=== PATIENT | male | born 1935 | race Caucasian/White ===

== ENCOUNTER 2024-08-20 18:49 | Inpatient (IN) | payer MEDICARE ==
[2024-08-20 19:44] LABS: Basophils % (A) 0 %; Eosinophils % (A) 0 %; HCT 34.6 % (39.0-53.0); HGB 10.8 gm/dL (13.0-17.5); Hypochromasia Marked; Lymphocytes # (A) 0.3 k/uL (1.0-4.8); Lymphocytes % (A) 3 %; MCH 31.5 pg (25.0-35.0); MCHC 31.3 g/dL (31.0-37.0); MCV 100.7 fL (80.0-100.0); Macrocytosis Slight; Monocytes # (A) 0.4 k/uL (0-1.0); Monocytes % (A) 4 %; Neutrophils # (A) 7.9 k/uL (1.3-7.7); Neutrophils % (A) 92 %; Platelet Count 156 k/uL (150-450); RBC 3.44 m/uL (4.30-5.90); RDW 14.7 % (11.5-15.5); WBC 8.6 k/uL (3.8-10.6)
[2024-08-20 19:59] LABS: ALT 16 U/L (4-49); AST 17 U/L (17-59); African American GFR (CKD) 31 (>60 ml/min/1.73 sqM); Albumin 3.1 g/dL (3.5-5.0); Alkaline Phosphatase 118 U/L (38-126); Anion Gap 10 mmol/L; Blood Urea Nitrogen 35 mg/dL (9-20); Calcium 8.6 mg/dL (8.4-10.2); Carbon Dioxide 16 mmol/L (22-30); Chloride 114 mmol/L (98-107); Glucose 130 mg/dL (74-99); Magnesium 2.3 mg/dL (1.6-2.3); Non-African American GFR(CKD) 27 (>60 ml/min/1.73 sqM); Potassium 5.2 mmol/L (3.5-5.1); Sodium 140 mmol/L (137-145); Total Bilirubin 0.9 mg/dL (0.2-1.3); Total Protein 5.6 g/dL (6.3-8.2)
[2024-08-20 20:04] LABS: INR 1.1 (<1.2); Partial Thromboplastin Time 23.7 sec (22.0-30.0); Prothrombin Time 12.3 sec (10.0-12.5)
[2024-08-20 20:08] LABS: NT-Pro-B-Type Natriuretic Pept 7300 pg/mL
--- NOTE | 2024-08-20 20:32 | XR ---
EXAMINATION TYPE: XR chest 2V DATE OF EXAM: 08/20/2024 8:27 PM COMPARISON: None. CLINICAL INDICATION: Male, 88 years old with history of Weakness: Shortness of breath TECHNIQUE: XR chest 2V views of the chest are obtained. FINDINGS: Scattered senescent parenchymal changes noted. Hyperinflation compatible with COPD. Patchy and nodular infiltrate left perihilar region could reflect pneumonia in the appropriate clinic al setting. Underlying mass is not excluded and follow up following appropriate therapeutic intervent ion is recommended. There appear to be small effusions. Heart size is stable. Mediastinal structures are stable and grossly unremarkable. No evidence for hilar prominence. Degenerative changes dorsal spine. IMPRESSION: 1. Patchy and nodular infiltrate left perihilar region could reflect pneumonia in the appropriate cli nical setting. Underlying mass is not excluded and short-term follow up following appropriate therape utic intervention is recommended. [facility], , 08/20/2024 8:29 PM
[2024-08-20] MEDS: FUROSEMIDE 10 MG/ML 4 ML VIAL IV STA (20:47)
[2024-08-20] MEDS ORDERED: NALOXONE 0.4 MG/ML 1 ML VIAL IV PRN (21:39)
--- NOTE | 2024-08-20 21:53 | CT ---
6 EXAMINATION TYPE: CT brain wo con DATE OF EXAM: 08/20/2024 COMPARISON: None CLINICAL INDICATION: Male, 88 years old with history of weakness; [facility], Patient comes in for weakness and dizziness. Unable to get out of wheelchair. Lives at home byself. Daught came to see him and coul d not get proper blood pressure reading. TECHNIQUE: CT scan of the head is performed without contrast. CT DLP: 1121.[address] CTDI: mGy Automated exposure control for dose reduction was used. FINDINGS: There is no acute intracranial hemorrhage or midline shift identified. There is diffuse v entricular and sulcal prominence consistent with diffuse age-related cerebral atrophy. There is low- attenuation in the periventricular white matter consistent with chronic small vessel ischemic change. The globes are intact and the visualized sinuses are clear. IMPRESSION: No acute intracranial hemorrhage or midline shift. There is diffuse age-related cerebra l atrophy and chronic small vessel ischemic change noted. [facility], , 08/20/2024 9:51 PM
[2024-08-20] MEDS: HEPARIN SODIUM 1,000 UN/ML (10ML VL) IV ONE (22:14)
[2024-08-20] MEDS: HEPARIN SOD,PORK IN 0.45% NACL 25,000 UNIT in 0.45% NACL 1 250ML.BAG IV SCH (22:15)
--- NOTE | 2024-08-20 22:29 | ED ---
General Adult HPI - General Chief complaint: Weakness Stated complaint: Weakness Time Seen by Provider: 08/20/24 19:29 Source: patient Mode of arrival: wheelchair Limitations: no limitations - History of Present Illness Initial comments: 88-year-old male presenting with chief complaint of weakness. Patient lives alone. He reports that since this afternoon he has been unable to get out of his wheelchair. Family came to visit him this evening and found him stuck in his wheelchair. He also tried to take his blood pressure but could not get a proper reading. He reports that he does take a "water pill", however he has missed some doses and he is having some severe lower extremity swelling. Patient denies shortness of breath but does have labored breathing. He denies chest pain. Denies abdominal pain and vomiting. - Related Data Home Medications Medication Instructions Recorded Confirmed Atorvastatin Calcium [Lipitor] 40 mg PO DAILY 08/20/24 08/20/24 Furosemide [Lasix] 20 mg PO DAILY 08/20/24 08/20/24 Glimepiride [Amaryl] 1 mg PO DAILY 08/20/24 08/20/24 Metoprolol Tartrate [Lopressor] 12.5 mg PO BID 08/20/24 08/20/24 Potassium Chloride ER [K-Dur 10] 10 meq PO DAILY 08/20/24 08/20/24 Tamsulosin [Flomax] 0.4 mg PO DAILY 08/20/24 08/20/24 amLODIPine BESYLATE/BENAZEPRIL 1 cap PO DAILY 08/20/24 08/20/24 [amLODIPine BESYLATE/BENAZEPRIL 10-20 mg] lisinopriL [Zestril] 10 mg PO DAILY 08/20/24 08/20/24 Allergies Allergy/AdvReac Type Severity Reaction Status Date / Time No Known Allergies Allergy Verified 08/20/24 19:44 Review of Systems ROS Statement: Those systems with pertinent positive or pertinent negative responses have been documented in the HPI. ROS Other: All systems not noted in ROS Statement are negative. Past Medical History Past Medical History: Diabetes Mellitus, Hypertension History of Any Multi-Drug Resistant Organisms: None Reported Past Surgical History: No Surgical Hx Reported Past Psychological History: No Psychological Hx Reported Smoking Status: Never smoker Past Alcohol Use History: Rare Past Drug Use History: None Reported - Past Family History Father Family Medical History: Diabetes Mellitus Mother Family Medical History: Cancer General Exam General appearance: alert, in no apparent distress Head exam: Present: atraumatic, normocephalic, normal inspection Eye exam: Present: normal appearance, EOMI Neck exam: Present: normal inspection. Absent: meningismus Respiratory exam: Present: normal lung sounds bilaterally. Absent: respiratory distress, wheezes, rales, rhonchi, stridor Cardiovascular Exam: Present: regular rate, normal rhythm, normal heart sounds. Absent: systolic murmur, diastolic murmur, rubs, gallop, clicks Extremities exam: Present: pedal edema Neurological exam: Present: alert, oriented X3 Psychiatric exam: Present: normal affect, normal mood Skin exam: Present: warm, dry Course Vital Signs 08/20/24 08/20/24 08/20/24 19:04 20:44 22:16 Temperature 98.2 F Pulse Rate 42 L 40 L 40 L Respiratory 18 18 18 Rate Blood Pressure 159/66 156/70 120/91 O2 Sat by Pulse 93 L 92 L 96 Oximetry 08/20/24 08/21/24 08/21/24 23:00 00:00 01:00 Temperature Pulse Rate 40 L 40 L 40 L Respiratory 18 18 18 Rate Blood Pressure 145/62 164/62 175/73 O2 Sat by Pulse 94 L 95 93 L Oximetry 08/21/24 08/21/24 08/21/24 02:00 03:45 07:00 Temperature Pulse Rate 40 L 35 L 32 L Respiratory 18 20 22 Rate Blood Pressure 156/69 173/85 165/66 O2 Sat by Pulse 93 L 96 92 L Oximetry 08/21/24 08/21/24 08/21/24 09:16 10:00 12:00 Temperature 97.8 F Pulse Rate 53 L 34 L 34 L Respiratory 18 22 20 Rate Blood Pressure 174/71 174/65 183/73 O2 Sat by Pulse 92 L 93 L 95 Oximetry 08/21/24 08/21/24 08/21/24 13:00 14:00 15:00 Temperature Pulse Rate 51 L 43 L 47 L Respiratory 17 20 22 Rate Blood Pressure 165/77 169/106 144/68 O2 Sat by Pulse 95 93 L 94 L Oximetry 08/21/24 08/21/24 16:00 17:00 Temperature Pulse Rate 48 L 35 L Respiratory 18 24 Rate Blood Pressure 167/88 163/76 O2 Sat by Pulse 93 L 93 L Oximetry Medical Decision Making - Medical Decision Making Was pt. sent in by a medical professional or institution ([facility]ANDEEP Herman, [facility], urgent care, hospital, or [facility]...) When possible be specific @ -No Did you speak to anyone other than the patient for history (EMS, parent, family, police, friend...)? What history was obtained from this source @ -Family Did you review nursing and triage notes (agree or disagree)? Why? @ -I reviewed and agree with nursing and triage notes Were old charts reviewed (outside hosp., previous admission, EMS record, old EKG, old radiological studies, urgent care reports/EKG's, [facility] records)? Report findings @ -No old charts were reviewed Differential Diagnosis (chest pain, altered mental status, abdominal pain women, abdominal pain men, vaginal bleeding, weakness, fever, dyspnea, syncope, headache, dizziness, GI bleed, back pain, seizure, CVA, palpatations, mental health, musculoskeletal)? @ -MDM Differential Weakness: Hypoglycemia, shock, sepsis, hyponatremia, anemia, infection, VA, ETOH, adverse medicine reaction, overdose, stroke. ... This is not meant to be an all- inclusive list EKG interpreted by me (3pts min.). @ -EKG shows atrial fibrillation with slow ventricular response. Ventricular rate 42. QRS 144. QT 545. QTc 486 X-rays interpreted by me (1pt min.). @ -Chest x-ray shows patchy and nodular infiltrate left perihilar region could reflect pneumonia in the appropriate clinical setting. Underlying mass is not excluded and short-term follow-up following appropriate therapeutic intervention is recommended CT interpreted by me (1pt min.). @ -CT shows no acute intracranial hemorrhage or midline shift. There is diffuse age-related cerebral atrophy and chronic small vessel ischemic change noted U/S interpreted by me (1pt. min.). @ -None done What testing was considered but not performed or refused? (CT, X-rays, U/S, labs)? Why? @ -None What meds were considered but not given or refused? Why? @ -None Did you discuss the management of the patient with other professionals (professionals i.e. SANDEEP Herman, [facility]TER, lab, RT, psych nurse, executive secretary social welfare, doorperson, teacher, chief communications officer, outsole caser)? Give summary @ -Spoke with Dr. Jordan who accepts admission Was smoking cessation discussed for >3mins.? @ -No Was critical care preformed (if so, how long)? @ -No Were there social determinants of health that impacted care today? How? (Homel essness, low income, unemployed, alcoholism, drug addiction, transportation, low edu. Level, literacy, decrease access to med. care, senior care, rehab)? @ -No Was there de-escalation of care discussed even if they declined (Discuss DNR or withdrawal of care, Hospice)? DNR status @ -No What co-morbidities impacted this encounter? (DM, HTN, Smoking, COPD, CAD, Cancer, CVA, ARF, Chemo, Hep., AIDS, mental health diagnosis, sleep apnea, morbid obesity)? @ -Hypertension, diabetes Was patient admitted / discharged? Hospital course, mention meds given and route, prescriptions, significant lab abnormalities, going to OR and other pertinent info. @ -88-year-old male brought in by his family with chief complaint of generalized weakness. History and physical examination are conducted. EKG shows A-fib with slow ventricular response. No acute process seen on brain CT. Chest x-ray shows patchy infiltrate. This does not seem to correspond with pneumonia as the patient is having no cough or fever and no leukocytosis. Considering that his BNP is 7300 and troponin is 0.025 with no history of heart failure, seems more likely due to fluid overload with possible CHF. D-dimer 2.92, patient is in acute renal failure with creatinine 2.13 and BUN 35, VQ scan is ordered. Given that the patient is in new onset A-fib with slow ventricular response he is started on heparin. Patient will require admission. Patient and family are agreeable with this plan. I discussed this case with my attending Dr. Noyola Undiagnosed new problem with uncertain prognosis? @ -No Drug Therapy requiring intensive monitoring for toxicity (Heparin, Nitro, Insulin, Cardizem)? @ -No Were any procedures done? @ -No Diagnosis/symptom? @ -New onset A-fib with slow jugular response, CHF, acute renal failure Acute, or Chronic, or Acute on Chronic? @ -Acute Uncomplicated (without systemic symptoms) or Complicated (systemic symptoms)? @ -Complicated Side effects of treatment? @ -No Exacerbation, Progression, or Severe Exacerbation? @ -No Poses a threat to life or bodily function? How? (Chest pain, USA, VA, pneumonia, PE, COPD, DKA, ARF, appy, cholecystitis, CVA, Diverticulitis, Homicidal, Suicidal, threat to staff... and all critical care pts) @ -Yes - Lab Data Result diagrams: 08/27/24 02:54 08/27/24 02:50 Lab Results 08/20/24 08/20/24 08/20/24 Range/Units 19:35 19:35 19:35 WBC 8.6 (3.8-10.6) k/uL RBC 3.44 L (4.30-5.90) m/uL Hgb 10.8 L (13.0-17.5) gm/dL Hct 34.6 L (39.0-53.0) % MCV 100.7 H (80.0-100.0) fL MCH 31.5 (25.0-35.0) pg MCHC 31.3 (31.0-37.0) g/dL RDW 14.7 (11.5-15.5) % Plt Count 156 (150-450) k/uL MPV 9.0 Neutrophils % 92 % Lymphocytes % 3 % Monocytes % 4 % Eosinophils % 0 % Basophils % 0 % Neutrophils # 7.9 H (1.3-7.7) k/uL Lymphocytes # 0.3 L (1.0-4.8) k/uL Monocytes # 0.4 (0-1.0) k/uL Eosinophils # 0.0 (0-0.7) k/uL Basophils # 0.0 (0-0.2) k/uL Hypochromasia Marked Macrocytosis Slight PT 12.3 (10.0-12.5) sec INR 1.1 (<1.2) APTT 23.7 (22.0-30.0) sec D-Dimer 2.92 H (<0.60) mg/L FEU Sodium 140 (137-145) mmol/L Potassium 5.2 H (3.5-5.1) mmol/L Chloride 114 H (98-107) mmol/L Carbon Dioxide 16 L (22-30) mmol/L Anion Gap 10 mmol/L BUN 35 H (9-20) mg/dL Creatinine 2.13 H (0.66-1.25) mg/dL Est GFR (CKD-EPI)AfAm 31 (>60 ml/min/1.73 sqM) Est GFR (CKD-EPI)NonAf 27 (>60 ml/min/1.73 sqM) Glucose 130 H (74-99) mg/dL Lactic Ac Sepsis Rflx Plasma Lactic Acid Lenny (0.7-2.0) mmol/L Calcium 8.6 (8.4-10.2) mg/dL Magnesium 2.3 (1.6-2.3) mg/dL Total Bilirubin 0.9 (0.2-1.3) mg/dL AST 17 (17-59) U/L ALT 16 (4-49) U/L Alkaline Phosphatase 118 (38-126) U/L Troponin I (0.000-0.034) ng/mL NT-Pro-B Natriuret Pep 7300 pg/mL Total Protein 5.6 L (6.3-8.2) g/dL Albumin 3.1 L (3.5-5.0) g/dL Procalcitonin (0.02-0.50) ng/mL Urine Color Urine Appearance (Clear) Urine pH (5.0-8.0) Ur Specific [place] (1.001-1.035) Urine Protein (Negative) Urine Glucose (UA) (Negative) Urine Ketones (Negative) Urine Blood (Negative) Urine Nitrite (Negative) Urine Bilirubin (Negative) Urine Urobilinogen (<2.0) mg/dL Ur Leukocyte Esterase (Negative) Urine RBC (0-5) /hpf Urine WBC (0-5) /hpf Ur Squamous Epith Cells (0-4) /hpf Urine Bacteria (None) /hpf Hyaline Casts (0-2) /lpf Urine Mucus (None) /hpf 08/20/24 08/20/24 08/20/24 Range/Units 19:35 19:35 19:35 WBC (3.8-10.6) k/uL RBC (4.30-5.90) m/uL Hgb (13.0-17.5) gm/dL Hct (39.0-53.0) % MCV (80.0-100.0) fL MCH (25.0-35.0) pg MCHC (31.0-37.0) g/dL RDW (11.5-15.5) % Plt Count (150-450) k/uL MPV Neutrophils % % Lymphocytes % % Monocytes % % Eosinophils % % Basophils % % Neutrophils # (1.3-7.7) k/uL Lymphocytes # (1.0-4.8) k/uL Monocytes # (0-1.0) k/uL Eosinophils # (0-0.7) k/uL Basophils # (0-0.2) k/uL Hypochromasia Macrocytosis PT (10.0-12.5) sec INR (<1.2) APTT (22.0-30.0) sec D-Dimer (<0.60) mg/L FEU Sodium (137-145) mmol/L Potassium (3.5-5.1) mmol/L Chloride (98-107) mmol/L Carbon Dioxide (22-30) mmol/L Anion Gap mmol/L BUN (9-20) mg/dL Creatinine (0.66-1.25) mg/dL Est GFR (CKD-EPI)AfAm (>60 ml/min/1.73 sqM) Est GFR (CKD-EPI)NonAf (>60 ml/min/1.73 sqM) Glucose (74-99) mg/dL Lactic Ac Sepsis Rflx Plasma Lactic Acid Lenny 2.3 H* (0.7-2.0) mmol/L Calcium (8.4-10.2) mg/dL Magnesium (1.6-2.3) mg/dL Total Bilirubin (0.2-1.3) mg/dL AST (17-59) U/L ALT (4-49) U/L Alkaline Phosphatase (38-126) U/L Troponin I 0.025 (0.000-0.034) ng/mL NT-Pro-B Natriuret Pep pg/mL Total Protein (6.3-8.2) g/dL Albumin (3.5-5.0) g/dL Procalcitonin 0.16 (0.02-0.50) ng/mL Urine Color Urine Appearance (Clear) Urine pH (5.0-8.0) Ur Specific [place] (1.001-1.035) Urine Protein (Negative) Urine Glucose (UA) (Negative) Urine Ketones (Negative) Urine Blood (Negative) Urine Nitrite (Negative) Urine Bilirubin (Negative) Urine Urobilinogen (<2.0) mg/dL Ur Leukocyte Esterase (Negative) Urine RBC (0-5) /hpf Urine WBC (0-5) /hpf Ur Squamous Epith Cells (0-4) /hpf Urine Bacteria (None) /hpf Hyaline Casts (0-2) /lpf Urine Mucus (None) /hpf 08/20/24 08/20/24 Range/Units 20:20 22:03 WBC (3.8-10.6) k/uL RBC (4.30-5.90) m/uL Hgb (13.0-17.5) gm/dL Hct (39.0-53.0) % MCV (80.0-100.0) fL MCH (25.0-35.0) pg MCHC (31.0-37.0) g/dL RDW (11.5-15.5) % Plt Count (150-450) k/uL MPV Neutrophils % % Lymphocytes % % Monocytes % % Eosinophils % % Basophils % % Neutrophils # (1.3-7.7) k/uL Lymphocytes # (1.0-4.8) k/uL Monocytes # (0-1.0) k/uL Eosinophils # (0-0.7) k/uL Basophils # (0-0.2) k/uL Hypochromasia Macrocytosis PT (10.0-12.5) sec INR (<1.2) APTT (22.0-30.0) sec D-Dimer (<0.60) mg/L FEU Sodium (137-145) mmol/L Potassium (3.5-5.1) mmol/L Chloride (98-107) mmol/L Carbon Dioxide (22-30) mmol/L Anion Gap mmol/L BUN (9-20) mg/dL Creatinine (0.66-1.25) mg/dL Est GFR (CKD-EPI)AfAm (>60 ml/min/1.73 sqM) Est GFR (CKD-EPI)NonAf (>60 ml/min/1.73 sqM) Glucose (74-99) mg/dL Lactic Ac Sepsis Rflx Y Plasma Lactic Acid Lenny (0.7-2.0) mmol/L Calcium (8.4-10.2) mg/dL Magnesium (1.6-2.3) mg/dL Total Bilirubin (0.2-1.3) mg/dL AST (17-59) U/L ALT (4-49) U/L Alkaline Phosphatase (38-126) U/L Troponin I (0.000-0.034) ng/mL NT-Pro-B Natriuret Pep pg/mL Total Protein (6.3-8.2) g/dL Albumin (3.5-5.0) g/dL Procalcitonin (0.02-0.50) ng/mL Urine Color Colorless Urine Appearance Clear (Clear) Urine pH 5.5 (5.0-8.0) Ur Specific [place] 1.013 (1.001-1.035) Urine Protein 1+ H (Negative) Urine Glucose (UA) Negative (Negative) Urine Ketones Negative (Negative) Urine Blood Negative (Negative) Urine Nitrite Negative (Negative) Urine Bilirubin Negative (Negative) Urine Urobilinogen <2.0 (<2.0) mg/dL Ur Leukocyte Esterase Small H (Negative) Urine RBC 1 (0-5) /hpf Urine WBC 6 H (0-5) /hpf Ur Squamous Epith Cells <1 (0-4) /hpf Urine Bacteria Rare H (None) /hpf Hyaline Casts 4 H (0-2) /lpf Urine Mucus Rare H (None) /hpf Disposition Clinical Impression: CHF (congestive heart failure), A-fib Disposition: ADMITTED IP TO THIS HOSP Condition: Serious Time of Disposition: 22:29
[2024-08-20 22:35] LABS: Appearance,Urine Clear (Clear); Bacteria,Urine Rare /hpf; Bilirubin,Urine Negative (Negative); Blood,Urine Negative (Negative); Color,Urine Colorless; Glucose,Urine (UA) Negative (Negative); Hyaline Casts,Urine 4 /lpf (0-2); Ketones,Urine Negative (Negative); Leukocyte Esterase,Urine Small (Negative); Mucus,Urine Rare /hpf; Nitrite,Urine Negative (Negative); PH, Urine 5.5 (5.0-8.0); Protein,Urine 1+ (Negative); RBC,Urine 1 /hpf (0-5); Specific Gravity,Urine 1.013 (1.001-1.035); Squamous Epithelial Cell,Urine <1 /hpf (0-4); Urobilinogen,Urine <2.0 mg/dL (<2.0); WBC,Urine 6 /hpf (0-5)
[2024-08-21 05:29] LABS: Basophils % (A) 0 %; Eosinophils # (A) 0.1 k/uL (0-0.7); Eosinophils % (A) 1 %; HCT 32.3 % (39.0-53.0); HGB 10.3 gm/dL (13.0-17.5); Hypochromasia Marked; Lymphocytes # (A) 0.5 k/uL (1.0-4.8); Lymphocytes % (A) 8 %; MCH 32.5 pg (25.0-35.0); MCV 101.6 fL (80.0-100.0); Macrocytosis Slight; Mean Platelet Volume 9.1; Monocytes # (A) 0.5 k/uL (0-1.0); Monocytes % (A) 8 %; Neutrophils # (A) 5.4 k/uL (1.3-7.7); Neutrophils % (A) 82 %; Platelet Count 144 k/uL (150-450); RBC 3.18 m/uL (4.30-5.90); RDW 14.6 % (11.5-15.5); WBC 6.6 k/uL (3.8-10.6)
[2024-08-21 05:51] LABS: INR 1.2 (<1.2); Partial Thromboplastin Time 38.8 sec (22.0-30.0); Prothrombin Time 12.9 sec (10.0-12.5)
[2024-08-21] MEDS: HEPARIN SODIUM 1,000 UN/ML (10ML VL) IV PRN (06:09)
--- NOTE | 2024-08-21 09:16 | NM ---
EXAMINATION TYPE: NM pul vent and perfuse DATE OF EXAM: 08/21/2024 CLINICAL INDICATION: Male, 88 years old with history of Shortness of breath; COMPARISON: Chest x-ray one day earlier TECHNIQUE: Utilizing inhalation of 64.1 mCi Tc 99m DTPA aerosol and intravenous injection of 4.6 mCi of Tc 99m MAA, ventilation and perfusion images are acquired post injection in multiple projections. FINDINGS: Normal radiotracer distribution is noted in the lungs. There is no evidence of mismatched defects. IMPRESSION: Low scintigraphic evidence for acute pulmonary embolism. [facility], , 08/21/2024 9:14 AM
[2024-08-21 11:00] LABS: Glucose,Whole Blood 71 mg/dL (70-110)
[2024-08-21] MEDS ORDERED: METOPROLOL TARTRATE 12.5 MG TAB PO SCH (11:45)
--- NOTE | 2024-08-21 12:14 | P.CRDCN ---
History of Present Illness Consult date: 08/21/24 History of present illness: The patient is a very pleasant 88-year-old gentleman with no prior cardiac history but past medical history significant for diabetes and hypertension and dyslipidemia who was brought by his family to the emergency department for further evaluation of generalized weakness and fatigue and dizziness and lightheadedness. As a matter fact he was seen by his primary care physician recently for a follow-up and he was found to be bradycardic and he was on metoprolol and the dose has decreased. Yesterday he was about to eat his supper when he felt weak and felt dizzy but he did not have any presyncope or syncope. No symptoms of chest pain or chest discomfort or any heart racing or fluttering. Over the last several days he developed severe bilateral lower extremities edema. The family brought the patient for further evaluation where the EKG showed sinus mechanism with first-degree AV block. He is on metoprolol and that was stopped. Currently he is not on any AV heriberto cherise agents. No history of thyroid disease. No CAD or CHF or cardiac arrhythmia and he never seen by engineering program manager before. Also he was found to be in acute renal failure. His potassium was elevated as well. The physical examination is remarkable for regular rhythm with a systolic murmur at the right upper sternal border and distant heart sounds and diminished breathing sounds bilaterally and severe bilateral lower extremities edema noted. Assessment Bradycardia currently the patient is in sinus of bradycardia and we will rule out AV block Heart failure of unknown etiology with right more than left failure Acute renal failure Hyperkalemia secondary to acute renal failure Generalized weakness and fatigue could be secondary to bradycardia Dizziness could be secondary to bradycardia as well Multiple comorbid conditions Plan Hold any AV heriberto cherise agents at this point Correct the hyperkalemia Continue the current dose of Lasix IV with monitoring the kidney function and electrolytes Obtain an echocardiogram with Doppler Follow-up with the serial cardiac enzymes Follow-up with the patient Past Medical History Past Medical History: Diabetes Mellitus, Hypertension History of Any Multi-Drug Resistant Organisms: None Reported Past Surgical History: No Surgical Hx Reported Past Psychological History: No Psychological Hx Reported Smoking Status: Never smoker Past Alcohol Use History: Rare Past Drug Use History: None Reported Medications and Allergies Home Medications Medication Instructions Recorded Confirmed Type Atorvastatin Calcium [Lipitor] 40 mg PO DAILY 08/20/24 08/20/24 History Furosemide [Lasix] 20 mg PO DAILY 08/20/24 08/20/24 History Glimepiride [Amaryl] 1 mg PO DAILY 08/20/24 08/20/24 History Metoprolol Tartrate [Lopressor] 12.5 mg PO BID 08/20/24 08/20/24 History Potassium Chloride ER [K-Dur 10] 10 meq PO DAILY 08/20/24 08/20/24 History Tamsulosin [Flomax] 0.4 mg PO DAILY 08/20/24 08/20/24 History amLODIPine BESYLATE/BENAZEPRIL 1 cap PO DAILY 08/20/24 08/20/24 History [amLODIPine BESYLATE/BENAZEPRIL 10-20 mg] lisinopriL [Zestril] 10 mg PO DAILY 08/20/24 08/20/24 History Allergies Allergy/AdvReac Type Severity Reaction Status Date / Time No Known Allergies Allergy Verified 08/20/24 19:44 Physical Exam Vitals: Vital Signs Temp Pulse Resp BP Pulse Ox 08/21/24 10:00 34 L 22 174/65 93 L 08/21/24 09:16 97.8 F 53 L 18 174/71 92 L 08/21/24 07:00 32 L 22 165/66 92 L 08/21/24 03:45 35 L 20 173/85 96 08/21/24 02:00 40 L 18 156/69 93 L 08/21/24 01:00 40 L 18 175/73 93 L 08/21/24 00:00 40 L 18 164/62 95 08/20/24 23:00 40 L 18 145/62 94 L 08/20/24 22:16 40 L 18 120/91 96 08/20/24 20:44 40 L 18 156/70 92 L 08/20/24 19:04 98.2 F 42 L 18 159/66 93 L Intake and Output 08/20/24 08/21/24 08/21/24 22:59 06:59 14:59 Intake Total 77.372 Output Total 1300 Balance -1222.628 Intake: Intake, IV Titration 77.372 Amount Heparin Sod,Pork in 0.45% 77.372 NaCl 25,000 unit In 0.45 % NaCl 1 250ml.bag @ 9.59 UNITS/KG/HR 10.005 mls/ hr IV .Q24H [facility] Rx#: [id number] Output: Urine 1300 Other: Weight 104.326 kg Results 08/21/24 05:01 08/20/24 19:35 Cardiac Enzymes 08/20/24 08/20/24 Range/Units 19:35 19:35 AST 17 (17-59) U/L Troponin I 0.025 (0.000-0.034) ng/mL Coagulation 08/20/24 08/21/24 08/21/24 Range/Units 19:35 04:58 11:39 PT 12.3 12.9 H (10.0-12.5) sec APTT 23.7 38.8 H 49.1 H (22.0-30.0) sec CBC 08/20/24 08/21/24 Range/Units 19:35 05:01 WBC 8.6 6.6 (3.8-10.6) k/uL RBC 3.44 L 3.18 L (4.30-5.90) m/uL Hgb 10.8 L 10.3 L (13.0-17.5) gm/dL Hct 34.6 L 32.3 L (39.0-53.0) % Plt Count 156 144 L (150-450) k/uL Comprehensive Metabolic Panel 08/20/24 Range/Units 19:35 Sodium 140 (137-145) mmol/L Potassium 5.2 H (3.5-5.1) mmol/L Chloride 114 H (98-107) mmol/L Carbon Dioxide 16 L (22-30) mmol/L BUN 35 H (9-20) mg/dL Creatinine 2.13 H (0.66-1.25) mg/dL Glucose 130 H (74-99) mg/dL Calcium 8.6 (8.4-10.2) mg/dL AST 17 (17-59) U/L ALT 16 (4-49) U/L Alkaline Phosphatase 118 (38-126) U/L Total Protein 5.6 L (6.3-8.2) g/dL Albumin 3.1 L (3.5-5.0) g/dL Current Medications Generic Name Dose Route Start Last Admin Trade Name Freq PRN Reason Stop Dose Admin Amlodipine Besylate 10 mg 08/21/24 12:00 Amlodipine 10 Mg Tab PO DAILY [facility] Atorvastatin Calcium 40 mg 08/21/24 11:45 Atorvastatin 40 Mg Tab PO DAILY [facility] Furosemide 40 mg 08/21/24 11:45 Furosemide 10 Mg/Ml 4 Ml Vial IV Q12HR [facility] Heparin Sodium (Porcine) 0 unit 08/20/24 21:38 08/21/24 06:09 Heparin Sodium 1,000 Un/Ml (10ml Vl) IV 2,608 unit PER PROTOCOL PRN Administration Low PTT Protocol Heparin Sodium/Sodium Chloride 250 mls @ 10.005 mls/hr 08/20/24 21:45 08/21/24 05:59 25,000 unit/ Sodium Chloride IV 11.59 units/kg/hr .Q24H [facility] 12.091 mls/hr Titration Protocol 9.59 UNITS/KG/HR Lisinopril 20 mg 08/21/24 12:00 Lisinopril 20 Mg Tab PO DAILY [facility] Naloxone HCl 0.2 mg 08/20/24 21:39 Naloxone 0.4 Mg/Ml 1 Ml Vial IV Q2M PRN Opioid Reversal Potassium Chloride 10 meq 08/21/24 11:45 Potassium Chloride Er 10 Meq Tab.Er.Prt PO DAILY [facility] Tamsulosin HCl 0.4 mg 08/21/24 11:45 Tamsulosin 0.4 Mg Cap.Er.24h PO DAILY [facility] Intake and Output 08/20/24 08/21/24 08/21/24 22:59 06:59 14:59 Intake Total 77.372 Output Total 1300 Balance -1222.628 Intake: Intake, IV Titration 77.372 Amount Heparin Sod,Pork in 0.45% 77.372 NaCl 25,000 unit In 0.45 % NaCl 1 250ml.bag @ 9.59 UNITS/KG/HR 10.005 mls/ hr IV .Q24H [facility] Rx#: [id number] Output: Urine 1300 Other: Weight 104.326 kg 08/21/24 05:01 08/20/24 19:35
--- NOTE | 2024-08-21 12:26 | P.PN ---
Progress Note - Text Progress Note Date: 08/21/24 This is an addendum on the consult will performed earlier today. An EKG was performed at bedside and showed complete heart block with heart rate in the 30s. The patient need to undergo temporary pacemaker in the next few hours.
[2024-08-21] MEDS: amLODIPine 10 MG TAB PO SCH (12:34)
[2024-08-21] MEDS: ATORVASTATIN 40 MG TAB PO SCH (12:34)
[2024-08-21] MEDS: TAMSULOSIN 0.4 MG CAP.ER.24H PO SCH (12:34)
[2024-08-21] MEDS: POTASSIUM CHLORIDE ER 10 MEQ TAB.ER.PRT PO SCH (12:34)
[2024-08-21] MEDS: FUROSEMIDE 10 MG/ML 4 ML VIAL IV SCH (12:35)
[2024-08-21] MEDS: lisinopriL 20 MG TAB PO SCH (12:35)
[2024-08-21 15:54] LABS: African American GFR (CKD) 32 (>60 ml/min/1.73 sqM); Anion Gap 9 mmol/L; Blood Urea Nitrogen 37 mg/dL (9-20); Calcium 8.5 mg/dL (8.4-10.2); Carbon Dioxide 19 mmol/L (22-30); Chloride 111 mmol/L (98-107); Glucose 122 mg/dL (74-99); Non-African American GFR(CKD) 27 (>60 ml/min/1.73 sqM); Potassium 4.4 mmol/L (3.5-5.1); Sodium 139 mmol/L (137-145)
[2024-08-21] MEDS: SODIUM CHLORIDE 0.9% 1,000 ML IV ONE (17:12)
[2024-08-21] MEDS: LIDOCAINE 1% INJ 10MG/ML (20 ML MDV) SQ ONE (17:41)
--- NOTE | 2024-08-21 17:55 | P.PCN ---
Date of Procedure: 08/21/24 Operative Findings: Transvenous temporary pacemaker placement Performing physician Delvin Hernandez MD Procedure performed Placement of transvenous temporary pacemaker Ultrasound-guided access of the right common femoral vein Indication Symptomatic bradycardia Complication None Level of sedation Moderate sedation length of 10 minutes Procedure description After obtaining informed consent the patient was brought to the cardiac Coremaking Supervisor. The right common femoral vein was cannulated using micropuncture technique under ultrasound guidance the micropuncture wire passed easily then I placed a 6 Congolese 11 cm sheath. The sheath subsequently was secured and flushed. Under fluoroscopy guidance a balloontipped transvenous temporary pacemaker was advanced to the right ventricle and subsequently it was tested and placed at the 50 bpm as a heart rate and 5 of amp. The procedure was completed with no co mplication. The wire was subsequently secured. Postprocedure management Avoid any AV heriberto cherise agents Rule out thyroid disease Rule out reversible cause for the bradycardia Consider pacemaker if the heart rate did not improve and no reversible reasons
[2024-08-21 18:23] LABS: Glucose,Whole Blood 104 mg/dL (70-110)
--- NOTE | 2024-08-21 18:44 | CA ---
Transthoracic Echo Report Name: Alejandro Burrows Age: 88 Gender: M : 1935 Exam Date: 08/21/2024 14:02 Exam Location: [facility] Ht (in): 69 Wt (lb): 69 Ordering Physician: Julian Braden MD Attending/Referring Phys: Software Licensing Specialist Xin Lee RDCS Procedure CPT: Indications: chf, bradycardia Cardiac Hx: Technical Quality: Fair Contrast 1: Total Dose (mL): Contrast 2: Total Dose (mL): MEASUREMENTS (Male / Female) Normal Values 2D ECHO LV Diastolic Diameter PLAX 5.4 cm 4.2 - 5.9 / 3.9 - 5.3 cm LV Systolic Diameter PLAX 3.4 cm IVS Diastolic Thickness 1.2 cm 0.6 - 1.0 / 0.6 - 0.9 cm LVPW Diastolic Thickness 1.5 cm 0.6 - 1.0 / 0.6 - 0.9 cm LV Relative Wall Thickness 0.5 RV Internal Dim ED PLAX 4.6 cm LVOT Diameter 1.7 cm LV Diastolic Volume MOD BP 241.6 cm??? 67 - 155 / 56 - 104 cm??? LV Systolic Volume MOD BP 83.4 cm??? 22 - 58 / 19 - 49 cm??? LV Ejection Fraction MOD BP 65.5 % >= 55 % LV Diastolic Volume MOD 4C 224.2 cm??? LV Systolic Volume MOD 4C 75.1 cm??? LV Ejection Fraction MOD 4C 66.5 % LV Diastolic Length 4C 9.6 cm LV Systolic Length 4C 8.0 cm LV Diastolic Volume MOD 2C 257.8 cm??? LV Systolic Volume MOD 2C 80.8 cm??? LV Ejection Fraction MOD 2C 68.7 % LV Diastolic Length 2C 9.3 cm LV Systolic Length 2C 6.8 cm LA Volume 156.2 cm??? 18 - 58 / 22 - 52 cm??? LA Volume Index 130.3 cm???/m??? 16 - 28 cm???/m??? DOPPLER AV Peak Velocity 197.2 cm/s AV Peak Gradient 15.6 mmHg AV Mean Velocity 131.4 cm/s AV Mean Gradient 8.1 mmHg AV Velocity Time Integral 44.5 cm LVOT Peak Velocity 90.6 cm/s LVOT Peak Gradient 3.3 mmHg LVOT Velocity Time Integral 22.1 cm LVOT Stroke Volume 48.9 cm??? LVOT Stroke Volume Index 37.2 ml/m??? AV Area Cont Eq vti 1.1 cm??? AV Area Cont Eq pk 1.0 cm??? MV Area PHT 1.4 cm??? Mitral E Point Velocity 77.0 cm/s Mitral A Point Velocity 79.0 cm/s Mitral E to A Ratio 1.0 MV Deceleration Time 551.9 ms MV E' Velocity 8.0 cm/s Mitral E to MV E' Ratio 9.6 FINDINGS Left Ventricle Impaired LV function with EF between 40 to 45% Right Ventricle Moderate right ventricular dilatation. Right ventricular systolic pressure within normal limits. Right Atrium Normal right atrial size. Left Atrium Moderately increased left atrial area. Mitral Valve Structurally normal mitral valve. Mild mitral regurgitation. Aortic Valve Trileaflet aortic valve. No aortic valve stenosis or regurgitation. Tricuspid Valve Structurally normal tricuspid valve. Mild tricuspid regurgitation. Pulmonic Valve Structurally normal pulmonic valve. Trace pulmonic regurgitation. Pericardium No pericardial effusion. Aorta Normal size aortic root and proximal ascending aorta. CONCLUSIONS Impaired LV function with EF between 40 to 45% Previewed by: Dr. Delvin Hernandez MD (Electronically Signed) Final Date: 21 August 2024 18:43
[2024-08-21] MEDS ORDERED: DEXTROSE 50% SYRINGE 50 ML IVP PRN ×2 (19:32)
[2024-08-21] MEDS: INSULIN LISPRO (HumaLOG) 100 UNIT/ML 10 mL VL SQ SCH (21:03)
[2024-08-21 21:04] LABS: Glucose,Whole Blood 115 mg/dL (70-110)
[2024-08-21] MEDS: NITROGLYCERIN-D5W PMX 50 MG in DEXTROSE/WATER 1 250ML.BAG IV SCH (22:38)
[2024-08-22 03:54] LABS: Basophils % (A) 0 %; Eosinophils # (A) 0.1 k/uL (0-0.7); Eosinophils % (A) 1 %; HCT 33.4 % (39.0-53.0); HGB 10.2 gm/dL (13.0-17.5); Hypochromasia Slight; Lymphocytes # (A) 0.7 k/uL (1.0-4.8); Lymphocytes % (A) 9 %; MCH 31.4 pg (25.0-35.0); MCHC 30.7 g/dL (31.0-37.0); MCV 102.2 fL (80.0-100.0); Macrocytosis Slight; Mean Platelet Volume 9.6; Monocytes # (A) 0.7 k/uL (0-1.0); Monocytes % (A) 10 %; Neutrophils # (A) 5.4 k/uL (1.3-7.7); Neutrophils % (A) 77 %; Platelet Count 160 k/uL (150-450); RBC 3.26 m/uL (4.30-5.90); RDW 15.1 % (11.5-15.5)
[2024-08-22 04:38] LABS: African American GFR (CKD) 31 (>60 ml/min/1.73 sqM); Anion Gap 7 mmol/L; Blood Urea Nitrogen 37 mg/dL (9-20); Calcium 8.3 mg/dL (8.4-10.2); Carbon Dioxide 20 mmol/L (22-30); Chloride 111 mmol/L (98-107); Glucose 101 mg/dL (74-99); Non-African American GFR(CKD) 27 (>60 ml/min/1.73 sqM); Potassium 4.3 mmol/L (3.5-5.1); Sodium 138 mmol/L (137-145)
[2024-08-22 09:35] LABS: Glucose,Whole Blood 164 mg/dL (70-110)
--- NOTE | 2024-08-22 15:40 | P.PN ---
Subjective Progress Note Date: 08/22/24 The patient is a very pleasant 88-year-old gentleman with no prior cardiac history but past medical history significant for diabetes and hypertension and dyslipidemia who was brought by his family to the emergency department for further evaluation of generalized weakness and fatigue and dizziness and ligh theadedness. As a matter fact he was seen by his primary care physician recently for a follow-up and he was found to be bradycardic and he was on metoprolol and the dose has decreased. Yesterday he was about to eat his supper when he felt weak and felt dizzy but he did not have any presyncope or syncope. No symptoms of chest pain or chest discomfort or any heart racing or fluttering. Over the last several days he developed severe bilateral lower extremities edema. The family brought the patient for further evaluation where the EKG showed sinus mechanism with first-degree AV block. He is on metoprolol and that was stopped. Currently he is not on any AV heriberto cherise agents. No history of thyroid disease. No CAD or CHF or cardiac arrhythmia and he never seen by record keeper before. Also he was found to be in acute renal failure. His potassium was elevated as well. The physical examination is remarkable for regular rhythm with a systolic murmur at the right upper sternal border and distant heart sounds and diminished breathing sounds bilaterally and severe bilateral lower extremities edema noted. August 22, 2024 The patient was seen and evaluated this morning he still requiring pacing. The pressure has improved on the IV nitroglycerin which I am trying to wean him from and at the same time increasing the dose of lisinopril. The echo showed mildly impaired LV function with EF around 45%. He is still on Lasix IV he is still have severe bilateral lower extremities edema. The physical examination is remarkable for regular rhythm with a systolic murmur at the right upper sternal border and severe bilateral lower extremities edema noted. Assessment Bradycardia with third-degree AV block Heart failure of unknown etiology with right more than left failure Acute renal failure Hyperkalemia secondary to acute renal failure Generalized weakness and fatigue could be secondary to bradycardia Dizziness could be secondary to bradycardia as well Multiple comorbid conditions Plan Hold any AV heriberto cherise agents at this point Continue temporary pacing Continue IV diuretics Continue monitoring the kidney function and electrolytes Increase the dose of lisinopril Try to wean the patient from IV nitrate Objective - Vital Signs Vital signs: Vital Signs Temp 98.1 F 08/22/24 12:00 Pulse 49 L 08/22/24 15:00 Resp 23 08/22/24 15:00 BP 135/65 08/22/24 15:00 Pulse Ox 95 08/22/24 15:00 FiO2 Intake & Output 08/21/24 08/22/24 08/22/24 18:59 06:59 18:59 Intake Total 322.725 240 Output Total 50 2475 750 Balance -50 -2152.275 -510 Weight 104.326 kg 100.4 kg Intake: IV 310 240 0.9 normal saline 310 240 Intake, IV Titration 12.725 Amount Nitroglycerin-D5w Pmx 50 12.725 mg In Dextrose/Water 1 250ml.bag @ 5 MCG/MIN 1.5 mls/hr IV .Q24H [facility] Rx#: [id number] Output: Urine 50 2475 750 Other: Voiding Method External Catheter External Catheter # Bowel Movements 1 - Labs CBC & Chem 7: 08/22/24 03:42 08/22/24 03:42 Labs: Abnormal Lab Results - Last 24 Hours (Table) 08/21/24 08/21/24 08/22/24 Range/Units 14:49 21:02 03:42 RBC (4.30-5.90) m/uL Hgb (13.0-17.5) gm/dL Hct (39.0-53.0) % MCV (80.0-100.0) fL MCHC (31.0-37.0) g/dL Lymphocytes # (1.0-4.8) k/uL Chloride 111 H 111 H (98-107) mmol/L Carbon Dioxide 19 L 20 L (22-30) mmol/L BUN 37 H 37 H (9-20) mg/dL Creatinine 2.08 H 2.12 H (0.66-1.25) mg/dL Glucose 122 H 101 H (74-99) mg/dL POC Glucose (mg/dL) 115 H (70-110) mg/dL Calcium 8.3 L (8.4-10.2) mg/dL 08/22/24 08/22/24 Range/Units 03:42 09:33 RBC 3.26 L (4.30-5.90) m/uL Hgb 10.2 L (13.0-17.5) gm/dL Hct 33.4 L (39.0-53.0) % MCV 102.2 H (80.0-100.0) fL MCHC 30.7 L (31.0-37.0) g/dL Lymphocytes # 0.7 L (1.0-4.8) k/uL Chloride (98-107) mmol/L Carbon Dioxide (22-30) mmol/L BUN (9-20) mg/dL Creatinine (0.66-1.25) mg/dL Glucose (74-99) mg/dL POC Glucose (mg/dL) 164 H (70-110) mg/dL Calcium (8.4-10.2) mg/dL
--- NOTE | 2024-08-22 16:11 | P.HPIM ---
History of Present Illness H&P Date: 08/20/24 Chief Complaint: Generalized weakness 88-year-old male patient with past medical history significant for diabetes and hypertension and dyslipidemia, brought to the ER by his family for further evaluation of generalized weakness and fatigue and dizziness and lightheadedness. Patient was seen by his primary care physician recently for a follow-up and he was found to be bradycardic and he was on metoprolol and the dose has decreased. Yesterday he was about to eat his supper when he felt weak and felt dizzy but he did not have any presyncope or syncope. No symptoms of c hest pain or chest discomfort or any heart racing or fluttering. Over the last several days he developed severe bilateral lower extremities edema. The family brought the patient for further evaluation - EKG showed sinus mechanism with first-degree AV block. He is on metoprolol which is placed on hold Blood work reveals WBC of 8.6, hemoglobin of 11.8 and platelet count of 156, sodium 140, potassium 5.2, BUNs/creatinine of 35/2.13, troponin of 0.025 and lactic acid level of 2.3 Chest x-ray reveals patchy nodular infiltrate left perihilar region, possible pneumonia Review of Systems REVIEW OF SYSTEMS: CONSTITUTIONAL: No fever, no malaise, no fatigue. HEENT: No recent visual problems or hearing problems. Denied any sore throat. CARDIOVASCULAR: No chest pain, orthopnea, PND, no palpitations, no syncope. PULMONARY: No shortness of breath, no cough, no hemoptysis. GASTROINTESTINAL: No diarrhea, no nausea, no vomiting, no abdominal pain. NEUROLOGICAL: No headaches, no weakness, no numbness. HEMATOLOGICAL: Denies any bleeding or petechiae. GENITOURINARY: Denies any burning micturition, frequency, or urgency. MUSCULOSKELETAL/RHEUMATOLOGICAL: Denies any joint pain, swelling, or any muscle pain. ENDOCRINE: Denies any polyuria or polydipsia. The rest of the 14-point review of systems is negative. Past Medical History Past Medical History: Diabetes Mellitus, Hypertension History of Any Multi-Drug Resistant Organisms: None Reported Past Surgical History: No Surgical Hx Reported Past Psychological History: No Psychological Hx Reported Smoking Status: Never smoker Past Alcohol Use History: Rare Past Drug Use History: None Reported - Past Family History Father Family Medical History: Diabetes Mellitus Mother Family Medical History: Cancer Medications and Allergies Home Medications Medication Instructions Recorded Confirmed Type Atorvastatin Calcium [Lipitor] 40 mg PO DAILY 08/20/24 08/20/24 History Furosemide [Lasix] 20 mg PO DAILY 08/20/24 08/20/24 History Glimepiride [Amaryl] 1 mg PO DAILY 08/20/24 08/20/24 History Metoprolol Tartrate [Lopressor] 12.5 mg PO BID 08/20/24 08/20/24 History Potassium Chloride ER [K-Dur 10] 10 meq PO DAILY 08/20/24 08/20/24 History Tamsulosin [Flomax] 0.4 mg PO DAILY 08/20/24 08/20/24 History amLODIPine BESYLATE/BENAZEPRIL 1 cap PO DAILY 08/20/24 08/20/24 History [amLODIPine BESYLATE/BENAZEPRIL 10-20 mg] lisinopriL [Zestril] 10 mg PO DAILY 08/20/24 08/20/24 History Allergies Allergy/AdvReac Type Severity Reaction Status Date / Time No Known Allergies Allergy Verified 08/20/24 19:44 Physical Exam Vitals: Vital Signs Temp Pulse Resp BP Pulse Ox 08/20/24 20:44 40 L 18 156/70 92 L 08/20/24 19:04 98.2 F 42 L 18 159/66 93 L Intake and Output 08/20/24 08/20/24 08/20/24 06:59 14:59 22:59 Other: Weight 104.326 kg - Constitutional General appearance: Present: average body habitus, cooperative, no acute distress Eyes: Present: anicteric sclerae, EOMI, PERRLA, normal appearance Ears: bilateral: normal Neck: Present: normal ROM. Absent: lymphadenopathy, rigidity, thyromegaly Respiratory: bilateral: CTA, negative: rales, rhonchi, wheezing Cardiovascular; : regular; bradycardia Heart sounds: normal: S1, S2 General gastrointestinal: Present: normal bowel sounds, soft. Absent: distended, organomegaly, tenderness Genitourinary Comment(s): deferred Integumentary: Present: normal turgor. Absent: jaundiced, rash, ulcer Neurologic: Present: CNII-XII intact. Absent: focal deficits Musculoskeletal: Present: gait normal, strength equal bilaterally Results CBC & Chem 7: 08/22/24 03:42 08/22/24 03:42 Labs: Abnormal Lab Results - Last 24 Hours (Table) 08/20/24 08/20/24 08/20/24 Range/Units 19:35 19:35 19:35 RBC 3.44 L (4.30-5.90) m/uL Hgb 10.8 L (13.0-17.5) gm/dL Hct 34.6 L (39.0-53.0) % MCV 100.7 H (80.0-100.0) fL Neutrophils # 7.9 H (1.3-7.7) k/uL Lymphocytes # 0.3 L (1.0-4.8) k/uL D-Dimer 2.92 H (<0.60) mg/L FEU Potassium 5.2 H (3.5-5.1) mmol/L Chloride 114 H (98-107) mmol/L Carbon Dioxide 16 L (22-30) mmol/L BUN 35 H (9-20) mg/dL Creatinine 2.13 H (0.66-1.25) mg/dL Glucose 130 H (74-99) mg/dL Plasma Lactic Acid Lenny (0.7-2.0) mmol/L Total Protein 5.6 L (6.3-8.2) g/dL Albumin 3.1 L (3.5-5.0) g/dL 08/20/24 Range/Units 19:35 RBC (4.30-5.90) m/uL Hgb (13.0-17.5) gm/dL Hct (39.0-53.0) % MCV (80.0-100.0) fL Neutrophils # (1.3-7.7) k/uL Lymphocytes # (1.0-4.8) k/uL D-Dimer (<0.60) mg/L FEU Potassium (3.5-5.1) mmol/L Chloride (98-107) mmol/L Carbon Dioxide (22-30) mmol/L BUN (9-20) mg/dL Creatinine (0.66-1.25) mg/dL Glucose (74-99) mg/dL Plasma Lactic Acid Lenny 2.3 H* (0.7-2.0) mmol/L Total Protein (6.3-8.2) g/dL Albumin (3.5-5.0) g/dL Assessment and Plan Assessment: 1. Symptomatic bradycardia; atrial fibrillation with SVR -- Multiple EKGs were done in ED; initially revealed atrial fibrillation with SVR; metoprolol placed on hold; patient is placed on IV heparin per protocol -Consult cardiology 2. Acute exacerbation CHF; Lasix 40 mg IV every 12 hours; recommend 2D echo -Monitor strict DI's, daily weights; low-salt and fluid restricted diet 3. Acute renal failure; likely chronic kidney disease; baseline creatinine is not now -Hold off on IV antibiotics, given CHF; we will monitor strict DI's, daily weights, renal function electrolytes; avoid nephrotoxins and hypotension 4. Hyperkalemia; likely related to acute renal injury; we will monitor electrolytes closely 5. Diabetes mellitus; patient takes Amaryl 1 mg daily at home; we will hold off on oral medications and monitor Accu-Cheks q. ACH S with insulin sliding scale 6. Hypertension; patient takes amlodipine/BenzePrO 10-20 mg daily; we will continue at that time; hold off on metoprolol titrate 7. Hyperlipidemia; Lipitor 40 mg daily DVT prophylaxis; SCD/IV heparin CODE STATUS; full code
--- NOTE | 2024-08-22 16:13 | P.PN ---
Subjective Progress Note Date: 08/21/24 88-year-old male patient with past medical history significant for diabetes and hypertension and dyslipidemia, brought to the ER by his family for further evaluation of generalized weakness and fatigue and dizziness and lightheadedness. Patient was seen by his primary care physician recently for a follow-up and he was found to be bradycardic and he was on metoprolol and the dose has decreased. Yesterday he was about to eat his supper when he felt weak and felt dizzy but he did not have any presyncope or syncope. No symptoms of chest pain or chest discomfort or any heart racing or fluttering. Over the last several days he developed severe bilateral lower extremities edema. The family brought the patient for further evaluation - EKG showed sinus mechanism with first-degree AV block. He is on metoprolol which is placed on hold Blood work reveals WBC of 8.6, hemoglobin of 11.8 and platelet count of 156, sodium 140, potassium 5.2, BUNs/creatinine of 35/2.13, troponin of 0.025 and lactic acid level of 2.3 Chest x-ray reveals patchy nodular infiltrate left perihilar region, possible pneumonia Objective - Vital Signs Vital signs: Vital Signs Temp 97.8 F 08/21/24 09:16 Pulse 34 L 08/21/24 10:00 Resp 22 08/21/24 10:00 BP 174/65 08/21/24 10:00 Pulse Ox 93 L 08/21/24 10:00 FiO2 Intake & Output 08/20/24 08/21/24 08/21/24 18:59 06:59 18:59 Intake Total 77.372 Output Total 1300 Balance -1222.628 Weight 104.326 kg Intake: Intake, IV Titration 77.372 Amount Heparin Sod,Pork in 0.45% 77.372 NaCl 25,000 unit In 0.45 % NaCl 1 250ml.bag @ 9.59 UNITS/KG/HR 10.005 mls/ hr IV .Q24H [facility] Rx#: [id number] Output: Urine 1300 - Exam - Constitutional General appearance: Present: average body habitus, cooperative, no acute distress Eyes: Present: anicteric sclerae, EOMI, PERRLA, normal appearance Ears: bilateral: normal Neck: Present: normal ROM. Absent: lymphadenopathy, rigidity, thyromegaly Respiratory: bilateral: CTA, negative: rales, rhonchi, wheezing Cardiovascular; : regular; bradycardia Heart sounds: normal: S1, S2 General gastrointestinal: Present: normal bowel sounds, soft. Absent: distended, organomegaly, tenderness Genitourinary Comment(s): deferred Integumentary: Present: normal turgor. Absent: jaundiced, rash, ulcer Neurologic: Present: CNII-XII intact. Absent: focal deficits Musculoskeletal: Present: gait normal, strength equal bilaterally - Labs CBC & Chem 7: 08/22/24 03:42 08/22/24 03:42 Labs: Abnormal Lab Results - Last 24 Hours (Table) 08/20/24 08/20/24 08/20/24 Range/Units 19:35 19:35 19:35 RBC 3.44 L (4.30-5.90) m/uL Hgb 10.8 L (13.0-17.5) gm/dL Hct 34.6 L (39.0-53.0) % MCV 100.7 H (80.0-100.0) fL Plt Count (150-450) k/uL Neutrophils # 7.9 H (1.3-7.7) k/uL Lymphocytes # 0.3 L (1.0-4.8) k/uL PT (10.0-12.5) sec INR (<1.2) APTT (22.0-30.0) sec D-Dimer 2.92 H (<0.60) mg/L FEU Potassium 5.2 H (3.5-5.1) mmol/L Chloride 114 H (98-107) mmol/L Carbon Dioxide 16 L (22-30) mmol/L BUN 35 H (9-20) mg/dL Creatinine 2.13 H (0.66-1.25) mg/dL Glucose 130 H (74-99) mg/dL Plasma Lactic Acid Lenny (0.7-2.0) mmol/L Total Protein 5.6 L (6.3-8.2) g/dL Albumin 3.1 L (3.5-5.0) g/dL Urine Protein (Negative) Ur Leukocyte Esterase (Negative) Urine WBC (0-5) /hpf Urine Bacteria (None) /hpf Hyaline Casts (0-2) /lpf Urine Mucus (None) /hpf 08/20/24 08/20/24 08/21/24 Range/Units 19:35 22:03 04:58 RBC (4.30-5.90) m/uL Hgb (13.0-17.5) gm/dL Hct (39.0-53.0) % MCV (80.0-100.0) fL Plt Count (150-450) k/uL Neutrophils # (1.3-7.7) k/uL Lymphocytes # (1.0-4.8) k/uL PT 12.9 H (10.0-12.5) sec INR 1.2 H (<1.2) APTT 38.8 H (22.0-30.0) sec D-Dimer (<0.60) mg/L FEU Potassium (3.5-5.1) mmol/L Chloride (98-107) mmol/L Carbon Dioxide (22-30) mmol/L BUN (9-20) mg/dL Creatinine (0.66-1.25) mg/dL Glucose (74-99) mg/dL Plasma Lactic Acid Lenny 2.3 H* (0.7-2.0) mmol/L Total Protein (6.3-8.2) g/dL Albumin (3.5-5.0) g/dL Urine Protein 1+ H (Negative) Ur Leukocyte Esterase Small H (Negative) Urine WBC 6 H (0-5) /hpf Urine Bacteria Rare H (None) /hpf Hyaline Casts 4 H (0-2) /lpf Urine Mucus Rare H (None) /hpf 08/21/24 Range/Units 05:01 RBC 3.18 L (4.30-5.90) m/uL Hgb 10.3 L (13.0-17.5) gm/dL Hct 32.3 L (39.0-53.0) % MCV 101.6 H (80.0-100.0) fL Plt Count 144 L (150-450) k/uL Neutrophils # (1.3-7.7) k/uL Lymphocytes # 0.5 L (1.0-4.8) k/uL PT (10.0-12.5) sec INR (<1.2) APTT (22.0-30.0) sec D-Dimer (<0.60) mg/L FEU Potassium (3.5-5.1) mmol/L Chloride (98-107) mmol/L Carbon Dioxide (22-30) mmol/L BUN (9-20) mg/dL Creatinine (0.66-1.25) mg/dL Glucose (74-99) mg/dL Plasma Lactic Acid Lenny (0.7-2.0) mmol/L Total Protein (6.3-8.2) g/dL Albumin (3.5-5.0) g/dL Urine Protein (Negative) Ur Leukocyte Esterase (Negative) Urine WBC (0-5) /hpf Urine Bacteria (None) /hpf Hyaline Casts (0-2) /lpf Urine Mucus (None) /hpf Assessment and Plan Assessment: 1. Symptomatic bradycardia; atrial fibrillation with SVR -- Multiple EKGs were done in ED; initially revealed atrial fibrillation with SVR; metoprolol placed on hold; patient is placed on IV heparin per protocol -Consult cardiology 2. Acute exacerbation CHF; Lasix 40 mg IV every 12 hours; recommend 2D echo -Monitor strict DI's, daily weights; low-salt and fluid restricted diet 3. Acute renal failure; likely chronic kidney disease; baseline creatinine is not now -Hold off on IV antibiotics, given CHF; we will monitor strict DI's, daily weights, renal function electrolytes; avoid nephrotoxins and hypotension 4. Hyperkalemia; likely related to acute renal injury; we will monitor electrolytes closely 5. Diabetes mellitus; patient takes Amaryl 1 mg daily at home; we will hold off on oral medications and monitor Accu-Cheks q. ACH S with insulin sliding scale 6. Hypertension; patient takes amlodipine/BenzePrO 10-20 mg daily; we will continue at that time; hold off on metoprolol titrate 7. Hyperlipidemia; Lipitor 40 mg daily DVT prophylaxis; SCD/IV heparin CODE STATUS; full code
--- NOTE | 2024-08-22 16:16 | P.PN ---
Subjective Progress Note Date: 08/22/24 88-year-old male patient with past medical history significant for diabetes and hypertension and dyslipidemia, brought to the ER by his family for further evaluation of generalized weakness and fatigue and dizziness and lightheadedness. Patient was seen by his primary care physician recently for a follow-up and he was found to be bradycardic and he was on metoprolol and the dose has decreased. Yesterday he was about to eat his supper when he felt weak and felt dizzy but he did not have any presyncope or syncope. No symptoms of chest pain or chest discomfort or any heart racing or fluttering. Over the last several days he developed severe bilateral lower extremities edema. The family brought the patient for further evaluation - EKG showed sinus mechanism with first-degree AV block. He is on metoprolol which is placed on hold Blood work reveals WBC of 8.6, hemoglobin of 11.8 and platelet count of 156, sodium 140, potassium 5.2, BUNs/creatinine of 35/2.13, troponin of 0.025 and lactic acid level of 2.3 Chest x-ray reveals patchy nodular infiltrate left perihilar region, possible pneumonia 24-hour interval change 08/22/2024 Patient is seen and evaluated in ICU; family is present at bedside; patient is status post temporary pacemaker placement for third-degree AV block Vital signs reveal temperature 98.1, pulse 49, respiration 23 and blood pressure 135/65; patient is still requiring pacing Blood work reveals WBC of 7.2, hemoglobin of 10 and platelet count of 160, sodium 138, potassium of 0.3, BUNs/creatinine of 37/2.20 and blood glucose of 1 1 -Beta-blockers have been discontinued; cardiology planning to increase dose of lisinopril and trying to wean patient off of IV nitroglycerin -Diuresing well with Lasix 40 mg IV every 12 hours Objective - Vital Signs Vital signs: Vital Signs Temp 98.1 F 08/22/24 08:00 Pulse 49 L 08/22/24 09:00 Resp 30 H 08/22/24 09:00 BP 158/78 08/22/24 08:30 Pulse Ox 94 L 08/22/24 09:00 FiO2 Intake & Output 08/21/24 08/22/24 08/22/24 18:59 06:59 18:59 Intake Total 322.725 60 Output Total 50 2475 Balance -50 -8950.275 60 Weight 104.326 kg 100.4 kg Intake: IV 310 60 0.9 normal saline 310 60 Intake, IV Titration 12.725 Amount Nitroglycerin-D5w Pmx 50 12.725 mg In Dextrose/Water 1 250ml.bag @ 5 MCG/MIN 1.5 mls/hr IV .Q24H [facility] Rx#: [id number] Output: Urine 50 2475 Other: Voiding Method External Catheter External Catheter # Bowel Movements 1 - Exam - Constitutional General appearance: Present: average body habitus, cooperative, no acute distress Eyes: Present: anicteric sclerae, EOMI, PERRLA, normal appearance Ears: bilateral: normal Neck: Present: normal ROM. Absent: lymphadenopathy, rigidity, thyromegaly Respiratory: bilateral: CTA, negative: rales, rhonchi, wheezing Cardiovascular; : regular; bradycardia Heart sounds: normal: S1, S2 General gastrointestinal: Present: normal bowel sounds, soft. Absent: distended, organomegaly, tenderness Genitourinary Comment(s): deferred Integumentary: Present: normal turgor. Absent: jaundiced, rash, ulcer Neurologic: Present: CNII-XII intact. Absent: focal deficits Musculoskeletal: Present: gait normal, strength equal bilaterally - Labs CBC & Chem 7: 08/22/24 03:42 08/22/24 03:42 Labs: Abnormal Lab Results - Last 24 Hours (Table) 08/21/24 08/21/24 08/21/24 Range/Units 11:39 14:49 21:02 RBC (4.30-5.90) m/uL Hgb (13.0-17.5) gm/dL Hct (39.0-53.0) % MCV (80.0-100.0) fL MCHC (31.0-37.0) g/dL Lymphocytes # (1.0-4.8) k/uL APTT 49.1 H (22.0-30.0) sec Chloride 111 H (98-107) mmol/L Carbon Dioxide 19 L (22-30) mmol/L BUN 37 H (9-20) mg/dL Creatinine 2.08 H (0.66-1.25) mg/dL Glucose 122 H (74-99) mg/dL POC Glucose (mg/dL) 115 H (70-110) mg/dL Calcium (8.4-10.2) mg/dL 08/22/24 08/22/24 08/22/24 Range/Units 03:42 03:42 09:33 RBC 3.26 L (4.30-5.90) m/uL Hgb 10.2 L (13.0-17.5) gm/dL Hct 33.4 L (39.0-53.0) % MCV 102.2 H (80.0-100.0) fL MCHC 30.7 L (31.0-37.0) g/dL Lymphocytes # 0.7 L (1.0-4.8) k/uL APTT (22.0-30.0) sec Chloride 111 H (98-107) mmol/L Carbon Dioxide 20 L (22-30) mmol/L BUN 37 H (9-20) mg/dL Creatinine 2.12 H (0.66-1.25) mg/dL Glucose 101 H (74-99) mg/dL POC Glucose (mg/dL) 164 H (70-110) mg/dL Calcium 8.3 L (8.4-10.2) mg/dL Assessment and Plan Assessment: 1. Symptomatic bradycardia; atrial fibrillation with SVR -- Multiple EKGs were done in ED; initially revealed atrial fibrillation with SVR; metoprolol placed on hold; patient is placed on IV heparin per protocol -Consult cardiology 2. Acute exacerbation CHF; Lasix 40 mg IV every 12 hours; recommend 2D echo -Monitor strict DI's, daily weights; low-salt and fluid restricted diet 3. Acute renal failure; likely chronic kidney disease; baseline creatinine is not now -Hold off on IV antibiotics, given CHF; we will monitor strict DI's, daily weights, renal function electrolytes; avoid nephrotoxins and hypotension 4. Hyperkalemia; likely related to acute renal injury; we will monitor electrolytes closely 5. Diabetes mellitus; patient takes Amaryl 1 mg daily at home; we will hold off on oral medications and monitor Accu-Cheks q. ACH S with insulin sliding scale 6. Hypertension; patient takes amlodipine/BenzePrO 10-20 mg daily; we will continue at that time; hold off on metoprolol titrate 7. Hyperlipidemia; Lipitor 40 mg daily DVT prophylaxis; SCD/IV heparin CODE STATUS; full code
[2024-08-22 16:43] LABS: Glucose,Whole Blood 160 mg/dL (70-110)
[2024-08-22] MEDS: lisinopriL 20 MG TAB PO SCH (21:00)
[2024-08-22 21:08] LABS: Glucose,Whole Blood 107 mg/dL (70-110)
--- NOTE | 2024-08-23 11:40 | P.PN ---
Subjective Progress Note Date: 08/23/24 88-year-old male patient with past medical history significant for diabetes and hypertension and dyslipidemia, brought to the ER by his family for further evaluation of generalized weakness and fatigue and dizziness and lightheadedness. Patient was seen by his primary care physician recently for a follow-up and he was found to be bradycardic and he was on metoprolol and the dose has decreased. Yesterday he was about to eat his supper when he felt weak and felt dizzy but he did not have any presyncope or syncope. No symptoms of chest pain or chest discomfort or any heart racing or fluttering. Over the last several days he developed severe bilateral lower extremities edema. The family brought the patient for further evaluation - EKG showed sinus mechanism with first-degree AV block. He is on metoprolol which is placed on hold Blood work reveals WBC of 8.6, hemoglobin of 11.8 and platelet count of 156, sodium 140, potassium 5.2, BUNs/creatinine of 35/2.13, troponin of 0.025 and lactic acid level of 2.3 Chest x-ray reveals patchy nodular infiltrate left perihilar region, possible pneumonia 24-hour interval change 08/22/2024 Patient is seen and evaluated in ICU; family is present at bedside; patient is status post temporary pacemaker placement for third-degree AV block Vital signs reveal temperature 98.1, pulse 49, respiration 23 and blood pressure 135/65; patient is still requiring pacing Blood work reveals WBC of 7.2, hemoglobin of 10 and platelet count of 160, sodium 138, potassium of 0.3, BUNs/creatinine of 37/2.20 and blood glucose of 1 1 -Beta-blockers have been discontinued; cardiology planning to increase dose of lisinopril and trying to wean patient off of IV nitroglycerin -Diuresing well with Lasix 40 mg IV every 12 hours 08/23/2024 Patient seen and evaluated in ICU in follow-up; patient was more awake and responsive this morning; denies any complaint of chest pain or shortness of breath Vital signs are reviewed; patient remains afebrile; heart rate is lingering below 50; blood pressure stable at 165/69 -Patient is status post temporary pacemaker placed on 08/21/2024 for bradycardia with third-degree AV block; cardiology on board and recommending to hold any AV heriberto cherise agents at this point; patient remains on IV diuretics; lisinopril was increased for improved blood pressure control -- Labs are still pending for this morning Objective - Vital Signs Vital signs: Vital Signs Temp 98.0 F 08/23/24 04:00 Pulse 49 L 08/23/24 07:00 Resp 20 08/23/24 07:00 BP 139/92 08/23/24 07:00 Pulse Ox 94 L 08/23/24 07:00 FiO2 Intake & Output 08/22/24 08/23/24 08/23/24 18:59 06:59 18:59 Intake Total 330 451.825 30 Output Total 825 1525 0 Balance -495 -1073.175 30 Weight 101.6 kg Intake: IV 330 360 30 0.9 normal saline 330 360 30 Intake, IV Titration 91.825 Amount Nitroglycerin-D5w Pmx 50 91.825 mg In Dextrose/Water 1 250ml.bag @ 5 MCG/MIN 1.5 mls/hr IV .Q24H [facility] Rx#: [id number] Output: Urine 825 1525 0 Other: Voiding Method External Catheter External Catheter - Exam - Constitutional General appearance: Present: average body habitus, cooperative, no acute distress Eyes: Present: anicteric sclerae, EOMI, PERRLA, normal appearance Ears: bilateral: normal Neck: Present: normal ROM. Absent: lymphadenopathy, rigidity, thyromegaly Respiratory: bilateral: CTA, negative: rales, rhonchi, wheezing Cardiovascular; : regular; bradycardia Heart sounds: normal: S1, S2 General gastrointestinal: Present: normal bowel sounds, soft. Absent: distended, organomegaly, tenderness Genitourinary Comment(s): deferred Integumentary: Present: normal turgor. Absent: jaundiced, rash, ulcer Neurologic: Present: CNII-XII intact. Absent: focal deficits Musculoskeletal: Present: gait normal, strength equal bilaterally - Labs CBC & Chem 7: 08/22/24 03:42 08/22/24 03:42 Labs: Abnormal Lab Results - Last 24 Hours (Table) 08/22/24 08/22/24 Range/Units 09:33 16:41 POC Glucose (mg/dL) 164 H 160 H (70-110) mg/dL Assessment and Plan Assessment: 1. Symptomatic bradycardia; atrial fibrillation with SVR -- Multiple EKGs were done in ED; initially revealed atrial fibrillation with SVR; metoprolol placed on hold; patient is placed on IV heparin per protocol -Consult cardiology 2. Acute exacerbation CHF; Lasix 40 mg IV every 12 hours; recommend 2D echo -Monitor strict DI's, daily weights; low-salt and fluid restricted diet 3. Acute renal failure; likely chronic kidney disease; baseline creatinine is not now -Hold off on IV antibiotics, given CHF; we will monitor strict DI's, daily weights, renal function electrolytes; avoid nephrotoxins and hypotension 4. Hyperkalemia; likely related to acute renal injury; we will monitor electrolytes closely 5. Diabetes mellitus; patient takes Amaryl 1 mg daily at home; we will hold off on oral medications and monitor Accu-Cheks q. ACH S with insulin sliding scale 6. Hypertension; patient takes amlodipine/BenzePrO 10-20 mg daily; we will continue at that time; hold off on metoprolol titrate 7. Hyperlipidemia; Lipitor 40 mg daily DVT prophylaxis; SCD/IV heparin CODE STATUS; full code
[2024-08-23 12:20] LABS: African American GFR (CKD) 29 (>60 ml/min/1.73 sqM); Anion Gap 6 mmol/L; Blood Urea Nitrogen 38 mg/dL (9-20); Calcium 8.1 mg/dL (8.4-10.2); Carbon Dioxide 23 mmol/L (22-30); Chloride 109 mmol/L (98-107); Glucose 174 mg/dL (74-99); Magnesium 2.1 mg/dL (1.6-2.3); Non-African American GFR(CKD) 25 (>60 ml/min/1.73 sqM); Potassium 4.4 mmol/L (3.5-5.1); Sodium 138 mmol/L (137-145)
--- NOTE | 2024-08-23 16:24 | P.PN ---
Subjective Progress Note Date: 08/23/24 The patient is a very pleasant 88-year-old gentleman with no prior cardiac history but past medical history significant for diabetes and hypertension and dyslipidemia who was brought by his family to the emergency department for further evaluation of generalized weakness and fatigue and dizziness and ligh theadedness. As a matter fact he was seen by his primary care physician recently for a follow-up and he was found to be bradycardic and he was on metoprolol and the dose has decreased. Yesterday he was about to eat his supper when he felt weak and felt dizzy but he did not have any presyncope or syncope. No symptoms of chest pain or chest discomfort or any heart racing or fluttering. Over the last several days he developed severe bilateral lower extremities edema. The family brought the patient for further evaluation where the EKG showed sinus mechanism with first-degree AV block. He is on metoprolol and that was stopped. Currently he is not on any AV heriberto cherise agents. No history of thyroid disease. No CAD or CHF or cardiac arrhythmia and he never seen by scrap carrier before. Also he was found to be in acute renal failure. His potassium was elevated as well. The physical examination is remarkable for regular rhythm with a systolic murmur at the right upper sternal border and distant heart sounds and diminished breathing sounds bilaterally and severe bilateral lower extremities edema noted. August 22, 2024 The patient was seen and evaluated this morning he still requiring pacing. The pressure has improved on the IV nitroglycerin which I am trying to wean him from and at the same time increasing the dose of lisinopril. The echo showed mildly impaired LV function with EF around 45%. He is still on Lasix IV he is still have severe bilateral lower extremities edema. The physical examination is remarkable for regular rhythm with a systolic murmur at the right upper sternal border and severe bilateral lower extremities edema noted. August 23, 2024 The patient was seen and evaluated this morning. He continues to require pacing through the temporary pacemaker. Currently he is not on any AV heriberto cherise agents. He continues to have severe bilateral lower extremities edema and he is on Lasix IV. The creatinine remains stable. Will keep the patient overnight for possible permanent pacemaker to be performed tomorrow. The physical examination is remarkable for regular rhythm with a systolic murmur and severe bilateral lower extremities edema Assessment Bradycardia with third-degree AV block Heart failure of unknown etiology with right more than left failure Acute renal failure Hyperkalemia secondary to acute renal failure Generalized weakness and fatigue could be secondary to bradycardia Dizziness could be secondary to bradycardia as well Multiple comorbid conditions Plan Hold any AV heriberto cherise agents at this point Continue temporary pacing Continue IV diuretics Continue monitoring the kidney function and electrolytes Follow-up with the patient Objective - Vital Signs Vital signs: Vital Signs Temp 98 F 08/23/24 12:00 Pulse 49 L 08/23/24 13:00 Resp 16 08/23/24 13:00 BP 142/99 08/23/24 13:00 Pulse Ox 97 08/23/24 13:00 FiO2 Intake & Output 08/22/24 08/23/24 08/23/24 18:59 06:59 18:59 Intake Total 330 451.825 220 Output Total 825 1525 800 Balance -495 -1073.175 -580 Weight 101.6 kg Intake: IV 330 360 160 0.9 normal saline 330 360 160 Intake, IV Titration 91.825 Amount Nitroglycerin-D5w Pmx 50 91.825 mg In Dextrose/Water 1 250ml.bag @ 5 MCG/MIN 1.5 mls/hr IV .Q24H [facility] Rx#: [id number] Oral 60 Output: Urine 825 1525 800 Other: Voiding Method External Catheter External Catheter External Catheter - Labs CBC & Chem 7: 08/22/24 03:42 08/23/24 11:50 Labs: Abnormal Lab Results - Last 24 Hours (Table) 08/22/24 08/23/24 Range/Units 16:41 11:50 Chloride 109 H (98-107) mmol/L BUN 38 H (9-20) mg/dL Creatinine 2.24 H (0.66-1.25) mg/dL Glucose 174 H (74-99) mg/dL POC Glucose (mg/dL) 160 H (70-110) mg/dL Calcium 8.1 L (8.4-10.2) mg/dL
[2024-08-23 17:03] LABS: Glucose,Whole Blood 151 mg/dL (70-110)
[2024-08-23 20:41] LABS: Glucose,Whole Blood 161 mg/dL (70-110)
[2024-08-24 05:03] LABS: Basophils % (A) 0 %; Eosinophils # (A) 0.4 k/uL (0-0.7); Eosinophils % (A) 5 %; HCT 33.9 % (39.0-53.0); HGB 10.3 gm/dL (13.0-17.5); Hypochromasia Slight; Lymphocytes # (A) 1.2 k/uL (1.0-4.8); Lymphocytes % (A) 16 %; MCHC 30.4 g/dL (31.0-37.0); MCV 102.1 fL (80.0-100.0); Macrocytosis Slight; Mean Platelet Volume 9.3; Monocytes # (A) 0.8 k/uL (0-1.0); Monocytes % (A) 10 %; Neutrophils # (A) 4.8 k/uL (1.3-7.7); Neutrophils % (A) 66 %; Platelet Count 164 k/uL (150-450); RBC 3.32 m/uL (4.30-5.90); WBC 7.4 k/uL (3.8-10.6)
[2024-08-24 05:37] LABS: African American GFR (CKD) 30 (>60 ml/min/1.73 sqM); Anion Gap 7 mmol/L; Blood Urea Nitrogen 38 mg/dL (9-20); Calcium 8.2 mg/dL (8.4-10.2); Carbon Dioxide 23 mmol/L (22-30); Chloride 109 mmol/L (98-107); Glucose 73 mg/dL (74-99); Non-African American GFR(CKD) 26 (>60 ml/min/1.73 sqM); Potassium 4.2 mmol/L (3.5-5.1); Sodium 139 mmol/L (137-145)
[2024-08-24 09:09] LABS: Glucose,Whole Blood 104 mg/dL (70-110)
[2024-08-24 10:52] LABS: INR 1.2 (<1.2)
[2024-08-24 10:57] LABS: African American GFR (CKD) 30 (>60 ml/min/1.73 sqM); Anion Gap 7 mmol/L; Blood Urea Nitrogen 40 mg/dL (9-20); Calcium 8.1 mg/dL (8.4-10.2); Carbon Dioxide 24 mmol/L (22-30); Chloride 108 mmol/L (98-107); Glucose 82 mg/dL (74-99); Non-African American GFR(CKD) 26 (>60 ml/min/1.73 sqM); Potassium 4.2 mmol/L (3.5-5.1); Sodium 139 mmol/L (137-145)
[2024-08-24] MEDS ORDERED: VANCOMYCIN IV PER PHARMACY 1 EACH MISC MISCELLANE PRN (14:00)
[2024-08-24] MEDS: VANCOMYCIN 1,750 MG in SODIUM CHLORIDE 0.9% 500 ML 500 ML IVPB STA (14:01)
[2024-08-24] MEDS: SODIUM CHLORIDE 0.9% 1,000 ML IV SCH ×2 (14:01→14:07)
[2024-08-24 14:10] LABS: Glucose,Whole Blood 122 mg/dL (70-110)
[2024-08-24] MEDS: IV FLUID CONTINUATION 1,000 ML IV ONE (15:47)
[2024-08-24] MEDS ORDERED: fentaNYL (PF) 50 MCG/ML 2 ML AMP ONE (15:47)
[2024-08-24] MEDS ORDERED: MIDAZOLAM 2 MG/2 ML VIAL ONE (15:47)
[2024-08-24] MEDS: IOPAMIDOL-370 100ML BTL INJ ONE (16:00)
--- NOTE | 2024-08-24 16:36 | P.PN ---
Subjective Progress Note Date: 08/24/24 Interval History: 88-year-old male patient with past medical history significant for diabetes and hypertension and dyslipidemia, brought to the ER by his family for further evaluation of generalized weakness and fatigue and dizziness and lightheadedness. Patient was seen by his primary care physician recently for a follow-up and he was found to be bradycardic and he was on metoprolol and the dose has decreased. Yesterday he was about to eat his supper when he felt weak and felt dizzy but he did not have any presyncope or syncope. No symptoms of chest pain or chest discomfort or any heart racing or fluttering. Over the last several days he developed severe bilateral lower extremities edema. The family brought the patient for further evaluation - EKG showed sinus mechanism with first-degree AV block. He is on metoprolol which is placed on hold Blood work reveals WBC of 8.6, hemoglobin of 11.8 and platelet count of 156, sodium 140, potassium 5.2, BUNs/creatinine of 35/2.13, troponin of 0.025 and lactic acid level of 2.3 Chest x-ray reveals patchy nodular infiltrate left perihilar region, possible pneumonia 24-hour interval change 08/22/2024 Patient is seen and evaluated in ICU; family is present at bedside; patient is status post temporary pacemaker placement for third-degree AV block Vital signs reveal temperature 98.1, pulse 49, respiration 23 and blood pressure 135/65; patient is still requiring pacing Blood work reveals WBC of 7.2, hemoglobin of 10 and platelet count of 160, sodium 138, potassium of 0.3, BUNs/creatinine of 37/2.20 and blood glucose of 1 1 -Beta-blockers have been discontinued; cardiology planning to increase dose of lisinopril and trying to wean patient off of IV nitroglycerin -Diuresing well with Lasix 40 mg IV every 12 hours 08/23/2024 Patient seen and evaluated in ICU in follow-up; patient was more awake and responsive this morning; denies any complaint of chest pain or shortness of breath Vital signs are reviewed; patient remains afebrile; heart rate is lingering below 50; blood pressure stable at 165/69 -Patient is status post temporary pacemaker placed on 08/21/2024 for bradycardia with third-degree AV block; cardiology on board and recommending to hold any AV heriberto cherise agents at this point; patient remains on IV diuretics; lisinopril was increased for improved blood pressure control -- Labs are still pending for this morning Assessment and plan: Third-degree heart block: Bradycardia: Acute on chronic systolic CHF Cardiomyopathy with EF 40%: Hypertension Hyperlipidemia Presented with generalized weakness, fatigue, dizziness, was noted to be bradycardic at PCP office recently EKG showed sinus rhythm with first-degree AV block Echocardiogram showed mildly impaired LV function with EF around 45% Monitor daily weight and I&O's, cardiac diet Telemetry IV diuresis Hold AVN blocking agents Continue statin, Norvasc, lisinopril On temporary pacemaker, cardiology following, plan for permanent pacemaker JUWAN: Probable CKD Hyperkalemia: Resolved Monitoring for renal function Avoid nephrotoxin Continue IV diuresis Diabetes mellitus Accu-Cheks, diabetic diet Sliding-scale insulin BPH: Flomax DVT prophylaxis: SCD Monitor vital signs and labs Labs and medication were reviewed. Continue same treatment. Further recommendations as per clinical course of the patient PHYSICAL EXAMINATION: GENERAL: The patient is A&O x3, NAD HEENT: EOMI, Sclerae anicteric, Moist Mucous membranes Neck: Supple, Non tender, No JVD PULMONARY: Equal breath souds B/L, No wheezing, No crackles. CARDIOVASCULAR: S1, S2 present. No murmurs, rubs, or gallops. ABDOMEN: Soft, nontender, nondistended, normoactive bowel sounds. No guarding or rebound tenderness. MUSCULOSKELETAL: No edema, No cyanosis. No clubbing. Normal ROM. Intact peripheral pulses. NEUROLOGICAL: CN 2-12 grossly intact. No FND Skin: No Rash REVIEW OF SYSTEMS: CONSTITUTIONAL: No fever or chills. CARDIOVASCULAR: No chest pain, palpitations or syncope. PULMONARY: No shortness of breath, no cough, sore throat. GASTROINTESTINAL: No nausea, vomiting, diarrhea, abdominal pain. : No Dysuria, urgency, frequency. Extremities: No edema. NEUROLOGICAL: No headaches, no weakness, or numbness Dictation was produced using [employer] dictation software. please excuse any grammatical, word or spelling errors. Objective - Vital Signs Vital signs: Vital Signs Temp 98.4 F 08/24/24 12:00 Pulse 49 L 08/24/24 13:00 Resp 17 08/24/24 13:00 BP 114/56 08/24/24 13:00 Pulse Ox 93 L 08/24/24 13:00 FiO2 Intake & Output 08/23/24 08/24/24 08/24/24 18:59 06:59 18:59 Intake Total 320 240 160 Output Total 1350 2400 1050 Balance -1030 -2160 -890 Weight 103.5 kg Intake: IV 260 240 160 0.9 normal saline 260 240 160 Oral 60 Output: Urine 1350 2400 1050 Straight 1200 Other: Voiding Method External Catheter External Catheter External Catheter - Labs CBC & Chem 7: 08/24/24 04:42 08/24/24 10:14 Labs: Abnormal Lab Results - Last 24 Hours (Table) 08/23/24 08/23/24 08/24/24 Range/Units 17:02 20:28 04:42 RBC 3.32 L (4.30-5.90) m/uL Hgb 10.3 L (13.0-17.5) gm/dL Hct 33.9 L (39.0-53.0) % MCV 102.1 H (80.0-100.0) fL MCHC 30.4 L (31.0-37.0) g/dL PT (10.0-12.5) sec INR (<1.2) Chloride (98-107) mmol/L BUN (9-20) mg/dL Creatinine (0.66-1.25) mg/dL Glucose (74-99) mg/dL POC Glucose (mg/dL) 151 H 161 H (70-110) mg/dL Calcium (8.4-10.2) mg/dL 08/24/24 08/24/24 08/24/24 Range/Units 04:42 10:14 10:14 RBC (4.30-5.90) m/uL Hgb (13.0-17.5) gm/dL Hct (39.0-53.0) % MCV (80.0-100.0) fL MCHC (31.0-37.0) g/dL PT 13.0 H (10.0-12.5) sec INR 1.2 H (<1.2) Chloride 109 H 108 H (98-107) mmol/L BUN 38 H 40 H (9-20) mg/dL Creatinine 2.19 H 2.19 H (0.66-1.25) mg/dL Glucose 73 L (74-99) mg/dL POC Glucose (mg/dL) (70-110) mg/dL Calcium 8.2 L 8.1 L (8.4-10.2) mg/dL 08/24/24 Range/Units 14:09 RBC (4.30-5.90) m/uL Hgb (13.0-17.5) gm/dL Hct (39.0-53.0) % MCV (80.0-100.0) fL MCHC (31.0-37.0) g/dL PT (10.0-12.5) sec INR (<1.2) Chloride (98-107) mmol/L BUN (9-20) mg/dL Creatinine (0.66-1.25) mg/dL Glucose (74-99) mg/dL POC Glucose (mg/dL) 122 H (70-110) mg/dL Calcium (8.4-10.2) mg/dL
[2024-08-24] MEDS: ceFAZolin 1 GM in SODIUM CHLORIDE 0.9% IRRIG BTL 250 ML IRRIGATION PRN (16:47)
[2024-08-24] MEDS: ROPIVACAINE 5 MG/ML 30 ML VIAL MISCELLANE ONE (16:48)
[2024-08-24] MEDS: LIDOCAINE 1% INJ 10MG/ML (20 ML MDV) SQ ONE (16:48)
[2024-08-24] MEDS ORDERED: ACETAMINOPHEN TAB 325 MG TAB PO PRN (17:50)
--- NOTE | 2024-08-24 17:57 | P.EPPROC ---
- EP Procedure Note Electrophysiology Procedure Note: Diagnosis Complete heart block with syncope Dr. Hernandez placed a TVP for temporary pacing Procedure Dual-chamber pacemaker implantation Left upper extremity venogram Details Patient was brought to the EP lab in a fasting state. Written informed consent was obtained prior to the procedure. Conscious sedation provided by anesthesia team IV antibiotics administered. Local anesthesia administered. A 4 cm incision made in the pectoral area. Subfascial pocket made. Venous access obtained Venous sheaths placed. Leads placed in the right heart Atrial lead position the right atrial appendage. Medtronic lead P wave 6.1 mV pacing impedance 475 ohms and pacing threshold 0.9 V at 0.4 ms RV lead position in the RV apex. No R waves, complete heart block, pacing impedance 798 ohms, pacing threshold 0.75 V at 0.4 ms Dual-chamber Medtronic pacemaker device connected to the leads and placed in the subfascial pocket Antibiotic pouch placed JOVANI XT DR BAILEY Patient tolerated the procedure well without acute complications TVP was removed at the end of the procedure under fluoroscopy, sheath removed. Programming: DDD 60-130, paced AV interval 180 ms
[2024-08-24 20:48] LABS: Glucose,Whole Blood 174 mg/dL (70-110)
[2024-08-24] MEDS: ACETAMINOPHEN IV (For NPO) 1,000 MG in EMPTY BAG 1 BAG IVPB ONE (20:56)
[2024-08-25 06:11] LABS: Basophils % (A) 0 %; Eosinophils # (A) 0.4 k/uL (0-0.7); Eosinophils % (A) 4 %; HCT 38.6 % (39.0-53.0); HGB 11.3 gm/dL (13.0-17.5); Hypochromasia Moderate; Lymphocytes % (A) 27 %; MCH 30.3 pg (25.0-35.0); MCHC 29.2 g/dL (31.0-37.0); MCV 103.7 fL (80.0-100.0); Macrocytosis Moderate; Mean Platelet Volume 9.3; Monocytes # (A) 0.8 k/uL (0-1.0); Monocytes % (A) 7 %; Neutrophils # (A) 6.4 k/uL (1.3-7.7); Neutrophils % (A) 58 %; Platelet Count 179 k/uL (150-450); RBC 3.72 m/uL (4.30-5.90); RDW 14.8 % (11.5-15.5); WBC 11.1 k/uL (3.8-10.6)
[2024-08-25 06:21] LABS: African American GFR (CKD) 33 (>60 ml/min/1.73 sqM); Anion Gap 7 mmol/L; Blood Urea Nitrogen 40 mg/dL (9-20); Calcium 8.3 mg/dL (8.4-10.2); Carbon Dioxide 23 mmol/L (22-30); Chloride 107 mmol/L (98-107); Glucose 123 mg/dL (74-99); Non-African American GFR(CKD) 28 (>60 ml/min/1.73 sqM); Potassium 4.3 mmol/L (3.5-5.1); Sodium 137 mmol/L (137-145)
[2024-08-25 06:41] LABS: Glucose,Whole Blood 119 mg/dL (70-110)
[2024-08-25] MEDS ORDERED: ceFAZolin 1 GM in SODIUM CHLORIDE 0.9% IRRIG BTL 250 ML IRRIGATION PRN (07:00)
--- NOTE | 2024-08-25 08:11 | XR ---
EXAMINATION TYPE: XR chest 2V DATE OF EXAM: 08/25/2024 5:36 AM COMPARISON: Chest radiographs from 08/20/2024 CLINICAL INDICATION: Male, 88 years old with history of Lead placement check; [facility] TECHNIQUE: XR chest 2V Frontal and lateral views of the chest. FINDINGS: Lungs/Pleura: Blunting of the left costophrenic angle. There is no evidence of right pleural effusio n, focal consolidation, or pneumothorax Pulmonary vascularity: Unremarkable. Heart/mediastinum: Cardiomediastinal silhouette is unremarkable. Two lead cardiac conduction device o verlying the left hemithorax with lead tips projecting over the right ventricle and right atrium. Musculoskeletal: No acute osseous pathology. IMPRESSION: Left pleural effusion with associated atelectasis. New left cardiac conduction pacemaker. [facility], , 08/25/2024 8:09 AM
[2024-08-25 13:08] LABS: Glucose,Whole Blood 208 mg/dL (70-110)
--- NOTE | 2024-08-25 15:01 | P.PN ---
Subjective Interval History: 88-year-old male patient with past medical history significant for diabetes and hypertension and dyslipidemia, brought to the ER by his family for further evaluation of generalized weakness and fatigue and dizziness and lightheaded ness. Patient was seen by his primary care physician recently for a follow-up and he was found to be bradycardic and he was on metoprolol and the dose has decreased. Yesterday he was about to eat his supper when he felt weak and felt dizzy but he did not have any presyncope or syncope. No symptoms of chest pain or chest discomfort or any heart racing or fluttering. Over the last several days he developed severe bilateral lower extremities edema. The family brought the patient for further evaluation - EKG showed sinus mechanism with first-degree AV block. He is on metoprolol which is placed on hold Blood work reveals WBC of 8.6, hemoglobin of 11.8 and platelet count of 156, sodium 140, potassium 5.2, BUNs/creatinine of 35/2.13, troponin of 0.025 and lactic acid level of 2.3 Chest x-ray reveals patchy nodular infiltrate left perihilar region, possible pneumonia 24-hour interval change 08/22/2024 Patient is seen and evaluated in ICU; family is present at bedside; patient is status post temporary pacemaker placement for third-degree AV block Vital signs reveal temperature 98.1, pulse 49, respiration 23 and blood pressure 135/65; patient is still requiring pacing Blood work reveals WBC of 7.2, hemoglobin of 10 and platelet count of 160, sodium 138, potassium of 0.3, BUNs/creatinine of 37/2.20 and blood glucose of 1 1 -Beta-blockers have been discontinued; cardiology planning to increase dose of lisinopril and trying to wean patient off of IV nitroglycerin -Diuresing well with Lasix 40 mg IV every 12 hours 08/23/2024 Patient seen and evaluated in ICU in follow-up; patient was more awake and responsive this morning; denies any complaint of chest pain or shortness of breath Vital signs are reviewed; patient remains afebrile; heart rate is lingering below 50; blood pressure stable at 165/69 -Patient is status post temporary pacemaker placed on 08/21/2024 for bradycardia with third-degree AV block; cardiology on board and recommending to hold any AV heriberto cherise agents at this point; patient remains on IV diuretics; lisinopril was increased for improved blood pressure control -- Labs are still pending for this morning 08/24--patient was seen and examined today. No issues overnight. Patient underwent dual-chamber pacemaker implantation today. Remains on IV Lasix for diuresis 08/25--- patient was seen and examined today. Afebrile, heart rate 80, respiratory rate 21, blood pressure 137/71, saturating 96% on 5 L. WBC 11.1, hemoglobin 11.3 platelet 179. Sodium 137 potassium 4.3 BUN 40, creatinine 2.02 downtrending from yesterday. Patient still fluid overloaded, remains on IV Lasix for diuresis. Assessment and plan: Third-degree heart block: Bradycardia: Acute on chronic systolic CHF Cardiomyopathy with EF 40%: Hypertension Hyperlipidemia Presented with generalized weakness, fatigue, dizziness, was noted to be bradycardic at PCP office recently EKG showed sinus rhythm with first-degree AV block Echocardiogram showed mildly impaired LV function with EF around 45% Monitor daily weight and I&O's, cardiac diet Telemetry IV diuresis Hold AVN blocking agents Continue statin, Norvasc, lisinopril Initially had DVT, status post implantation of dual-chamber pacemaker 08/24. JUWAN: Probable CKD Hyperkalemia: Resolved Monitoring for renal function Avoid nephrotoxin Continue IV diuresis Diabetes mellitus Accu-Cheks, diabetic diet Sliding-scale insulin BPH: Flomax DVT prophylaxis: SCD Disposition: PT/OT consult Monitor vital signs and labs Labs and medication were reviewed. Continue same treatment. Further recommendations as per clinical course of the patient PHYSICAL EXAMINATION: GENERAL: The patient is A&O x3, NAD HEENT: EOMI, Sclerae anicteric, Moist Mucous membranes Neck: Supple, Non tender, No JVD PULMONARY: Equal breath souds B/L, No wheezing, No crackles. CARDIOVASCULAR: S1, S2 present. No murmurs, rubs, or gallops. ABDOMEN: Soft, nontender, nondistended, normoactive bowel sounds. No guarding or rebound tenderness. MUSCULOSKELETAL: ++ edema, No cyanosis. No clubbing. Normal ROM. Intact peripheral pulses. NEUROLOGICAL: CN 2-12 grossly intact. No FND Skin: No Rash REVIEW OF SYSTEMS: CONSTITUTIONAL: No fever or chills. CARDIOVASCULAR: No chest pain, palpitations or syncope. PULMONARY: No shortness of breath, no cough, sore throat. GASTROINTESTINAL: No nausea, vomiting, diarrhea, abdominal pain. : No Dysuria, urgency, frequency. Extremities: No edema. NEUROLOGICAL: No headaches, no weakness, or numbness Dictation was produced using [employer] dictation software. please excuse any grammatical, word or spelling errors. Objective - Vital Signs Vital signs: Vital Signs Temp 97.1 F L 08/25/24 12:00 Pulse 80 08/25/24 14:00 Resp 25 H 08/25/24 14:00 BP 137/71 08/25/24 14:00 Pulse Ox 96 08/25/24 14:00 FiO2 Intake & Output 08/24/24 08/25/24 08/25/24 18:59 06:59 18:59 Intake Total 310 1060 220 Output Total 1050 2080 665 Balance -645 -4100 -830 Weight 100.3 kg Intake: IV 310 660 220 0.9 normal saline 160 10 170 ACETAMINOPHEN IV (For NPO 100 ) 1,000 mg In Empty Bag 1 bag @ 400 mls/hr IVPB ONCE ONE Rx#:[id number] Sodium Chloride 0.9% 1, 550 50 000 ml @ 50 mls/hr IV . Q20H [facility] Rx#:[id number] Oral 400 Output: Urine 1050 2080 665 Other: Voiding Method External Catheter Indwelling Catheter Indwelling Catheter - Labs CBC & Chem 7: 08/25/24 05:50 08/25/24 05:50 Labs: Abnormal Lab Results - Last 24 Hours (Table) 08/24/24 08/25/24 08/25/24 Range/Units 20:46 05:50 05:50 WBC 11.1 H (3.8-10.6) k/uL RBC 3.72 L (4.30-5.90) m/uL Hgb 11.3 L (13.0-17.5) gm/dL Hct 38.6 L (39.0-53.0) % MCV 103.7 H (80.0-100.0) fL MCHC 29.2 L (31.0-37.0) g/dL BUN 40 H (9-20) mg/dL Creatinine 2.02 H (0.66-1.25) mg/dL Glucose 123 H (74-99) mg/dL POC Glucose (mg/dL) 174 H (70-110) mg/dL Calcium 8.3 L (8.4-10.2) mg/dL 08/25/24 08/25/24 Range/Units 06:40 12:57 WBC (3.8-10.6) k/uL RBC (4.30-5.90) m/uL Hgb (13.0-17.5) gm/dL Hct (39.0-53.0) % MCV (80.0-100.0) fL MCHC (31.0-37.0) g/dL BUN (9-20) mg/dL Creatinine (0.66-1.25) mg/dL Glucose (74-99) mg/dL POC Glucose (mg/dL) 119 H 208 H (70-110) mg/dL Calcium (8.4-10.2) mg/dL
[2024-08-25] MEDS: METOPROLOL SUCCINATE (ER) 25 MG TAB.ER.24H PO SCH (17:45)
--- NOTE | 2024-08-25 18:02 | P.PN ---
Subjective Progress Note Date: 08/25/24 The patient is a very pleasant 88-year-old gentleman with no prior cardiac history but past medical history significant for diabetes and hypertension and dyslipidemia who was brought by his family to the emergency department for further evaluation of generalized weakness and fatigue and dizziness and ligh theadedness. As a matter fact he was seen by his primary care physician recently for a follow-up and he was found to be bradycardic and he was on metoprolol and the dose has decreased. Yesterday he was about to eat his supper when he felt weak and felt dizzy but he did not have any presyncope or syncope. No symptoms of chest pain or chest discomfort or any heart racing or fluttering. Over the last several days he developed severe bilateral lower extremities edema. The family brought the patient for further evaluation where the EKG showed sinus mechanism with first-degree AV block. He is on metoprolol and that was stopped. Currently he is not on any AV heriberto cherise agents. No history of thyroid disease. No CAD or CHF or cardiac arrhythmia and he never seen by janitorial tech before. Also he was found to be in acute renal failure. His potassium was elevated as well. The physical examination is remarkable for regular rhythm with a systolic murmur at the right upper sternal border and distant heart sounds and diminished breathing sounds bilaterally and severe bilateral lower extremities edema noted. August 22, 2024 The patient was seen and evaluated this morning he still requiring pacing. The pressure has improved on the IV nitroglycerin which I am trying to wean him from and at the same time increasing the dose of lisinopril. The echo showed mildly impaired LV function with EF around 45%. He is still on Lasix IV he is still have severe bilateral lower extremities edema. The physical examination is remarkable for regular rhythm with a systolic murmur at the right upper sternal border and severe bilateral lower extremities edema noted. August 23, 2024 The patient was seen and evaluated this morning. He continues to require pacing through the temporary pacemaker. Currently he is not on any AV heriberto cherise agents. He continues to have severe bilateral lower extremities edema and he is on Lasix IV. The creatinine remains stable. Will keep the patient overnight for possible permanent pacemaker to be performed tomorrow. The physical examination is remarkable for regular rhythm with a systolic murmur and severe bilateral lower extremities edema 08/25/2024 Status post dual-chamber pacemaker for complete heart block. Currently patient is in medically paced rhythm with heart rate around 80 bpm. He continues to have lower extremity edema which appears to be chronic but improved since the time of admission. Assessment Bradycardia with third-degree AV block status post dual-chamber pacemaker 08/24/2024 HFmrEF, EF 40% Acute renal failure CKD stage IV Generalized weakness and fatigue could be secondary to bradycardia Multiple comorbid conditions Plan Reduce amlodipine as it might be contributing to lower extremity edema reduced to 5 mg daily Continue Lasix 40 mg IV twice daily Introduce metoprolol succinate 25 g daily. Uptitrate if needed. High risk of UTI with use of SGLT2 in this sedentary patient with Turcios catheter. Continue lisinopril 20 mg twice daily Cannot introduce Arni/MRA because of low GFR Monitor blood pressure, if elevated more than 140 mmHg, consider adding hydralazine. Patient can be downgraded to stepdown unit from ICU. Objective - Vital Signs Vital signs: Vital Signs Temp 99.7 F H 08/25/24 16:00 Pulse 85 08/25/24 17:00 Resp 18 08/25/24 17:00 BP 120/85 08/25/24 17:00 Pulse Ox 95 08/25/24 17:00 FiO2 Intake & Output 08/24/24 08/25/24 08/25/24 18:59 06:59 18:59 Intake Total 310 1060 520 Output Total 1050 2080 955 Balance -740 1020 - Weight 100.3 kg Intake: IV 310 660 280 0.9 normal saline 160 10 230 ACETAMINOPHEN IV (For NPO 100 ) 1,000 mg In Empty Bag 1 bag @ 400 mls/hr IVPB ONCE ONE Rx#:[id number] Sodium Chloride 0.9% 1, 550 50 000 ml @ 50 mls/hr IV . Q20H [facility] Rx#:[id number] Oral 400 240 Output: Urine 1050 2080 955 Other: Voiding Method External Catheter Indwelling Catheter Indwelling Catheter - Labs CBC & Chem 7: 08/25/24 05:50 08/25/24 05:50 Labs: Abnormal Lab Results - Last 24 Hours (Table) 08/24/24 08/25/24 08/25/24 Range/Units 20:46 05:50 05:50 WBC 11.1 H (3.8-10.6) k/uL RBC 3.72 L (4.30-5.90) m/uL Hgb 11.3 L (13.0-17.5) gm/dL Hct 38.6 L (39.0-53.0) % MCV 103.7 H (80.0-100.0) fL MCHC 29.2 L (31.0-37.0) g/dL BUN 40 H (9-20) mg/dL Creatinine 2.02 H (0.66-1.25) mg/dL Glucose 123 H (74-99) mg/dL POC Glucose (mg/dL) 174 H (70-110) mg/dL Calcium 8.3 L (8.4-10.2) mg/dL 08/25/24 08/25/24 Range/Units 06:40 12:57 WBC (3.8-10.6) k/uL RBC (4.30-5.90) m/uL Hgb (13.0-17.5) gm/dL Hct (39.0-53.0) % MCV (80.0-100.0) fL MCHC (31.0-37.0) g/dL BUN (9-20) mg/dL Creatinine (0.66-1.25) mg/dL Glucose (74-99) mg/dL POC Glucose (mg/dL) 119 H 208 H (70-110) mg/dL Calcium (8.4-10.2) mg/dL
[2024-08-25 20:22] LABS: Glucose,Whole Blood 225 mg/dL (70-110)
[2024-08-25] MEDS: HEPARIN SODIUM,PORCINE 5,000 UNIT/ML 1 ML VIAL SQ SCH (20:27)
[2024-08-26 06:06] LABS: Basophils % (A) 0 %; Eosinophils # (A) 0.3 k/uL (0-0.7); Eosinophils % (A) 4 %; HCT 34.5 % (39.0-53.0); HGB 10.5 gm/dL (13.0-17.5); Hypochromasia Slight; Lymphocytes # (A) 1.2 k/uL (1.0-4.8); Lymphocytes % (A) 14 %; MCH 30.8 pg (25.0-35.0); MCHC 30.3 g/dL (31.0-37.0); MCV 101.7 fL (80.0-100.0); Macrocytosis Slight; Mean Platelet Volume 9.6; Monocytes # (A) 0.8 k/uL (0-1.0); Monocytes % (A) 10 %; Neutrophils # (A) 5.9 k/uL (1.3-7.7); Neutrophils % (A) 70 %; Platelet Count 143 k/uL (150-450); RBC 3.39 m/uL (4.30-5.90); WBC 8.4 k/uL (3.8-10.6)
[2024-08-26 06:19] LABS: Glucose,Whole Blood 92 mg/dL (70-110)
[2024-08-26 06:22] LABS: African American GFR (CKD) 33 (>60 ml/min/1.73 sqM); Anion Gap 5 mmol/L; Blood Urea Nitrogen 45 mg/dL (9-20); Calcium 7.9 mg/dL (8.4-10.2); Carbon Dioxide 25 mmol/L (22-30); Chloride 107 mmol/L (98-107); Glucose 89 mg/dL (74-99); Non-African American GFR(CKD) 29 (>60 ml/min/1.73 sqM); Potassium 4.2 mmol/L (3.5-5.1); Sodium 137 mmol/L (137-145)
[2024-08-26] MEDS: amLODIPine 5 MG TAB PO SCH (09:07)
[2024-08-26 11:13] LABS: Glucose,Whole Blood 159 mg/dL (70-110)
--- NOTE | 2024-08-26 14:10 | P.PN ---
Subjective Interval History: 88-year-old male patient with past medical history significant for diabetes and hypertension and dyslipidemia, brought to the ER by his family for further evaluation of generalized weakness and fatigue and dizziness and lightheaded ness. Patient was seen by his primary care physician recently for a follow-up and he was found to be bradycardic and he was on metoprolol and the dose has decreased. Yesterday he was about to eat his supper when he felt weak and felt dizzy but he did not have any presyncope or syncope. No symptoms of chest pain or chest discomfort or any heart racing or fluttering. Over the last several days he developed severe bilateral lower extremities edema. The family brought the patient for further evaluation - EKG showed sinus mechanism with first-degree AV block. He is on metoprolol which is placed on hold Blood work reveals WBC of 8.6, hemoglobin of 11.8 and platelet count of 156, sodium 140, potassium 5.2, BUNs/creatinine of 35/2.13, troponin of 0.025 and lactic acid level of 2.3 Chest x-ray reveals patchy nodular infiltrate left perihilar region, possible pneumonia 24-hour interval change 08/22/2024 Patient is seen and evaluated in ICU; family is present at bedside; patient is status post temporary pacemaker placement for third-degree AV block Vital signs reveal temperature 98.1, pulse 49, respiration 23 and blood pressure 135/65; patient is still requiring pacing Blood work reveals WBC of 7.2, hemoglobin of 10 and platelet count of 160, sodium 138, potassium of 0.3, BUNs/creatinine of 37/2.20 and blood glucose of 1 1 -Beta-blockers have been discontinued; cardiology planning to increase dose of lisinopril and trying to wean patient off of IV nitroglycerin -Diuresing well with Lasix 40 mg IV every 12 hours 08/23/2024 Patient seen and evaluated in ICU in follow-up; patient was more awake and responsive this morning; denies any complaint of chest pain or shortness of breath Vital signs are reviewed; patient remains afebrile; heart rate is lingering below 50; blood pressure stable at 165/69 -Patient is status post temporary pacemaker placed on 08/21/2024 for bradycardia with third-degree AV block; cardiology on board and recommending to hold any AV heriberto cherise agents at this point; patient remains on IV diuretics; lisinopril was increased for improved blood pressure control -- Labs are still pending for this morning 08/24--patient was seen and examined today. No issues overnight. Patient underwent dual-chamber pacemaker implantation today. Remains on IV Lasix for diuresis 08/25--- patient was seen and examined today. Afebrile, heart rate 80, respiratory rate 21, blood pressure 137/71, saturating 96% on 5 L. WBC 11.1, hemoglobin 11.3 platelet 179. Sodium 137 potassium 4.3 BUN 40, creatinine 2.02 downtrending from yesterday. Patient still fluid overloaded, remains on IV Lasix for diuresis. 08/26--patient was seen and examined today. Continues have significant lower extremity edema. Afebrile, heart rate 62, respiratory rate 20, blood pressure 125/74, saturating 95% on 3 L. WBCs 8.4, hemoglobin 10.5, platelet 143. BUN 45, creatinine 2.0 decrease amlodipine dose, restarted Lopressor, per car diology. Remains on IV Lasix for diuresis. Assessment and plan: Third-degree heart block: Status post dual-chamber pacemaker placement 08/24 Bradycardia: Acute on chronic systolic CHF Cardiomyopathy with EF 40%: Hypertension Hyperlipidemia Presented with generalized weakness, fatigue, dizziness, was noted to be bradycardic at PCP office recently EKG showed sinus rhythm with first-degree AV block Echocardiogram showed mildly impaired LV function with EF around 45% Monitor daily weight and I&O's, cardiac diet Telemetry IV diuresis Hold AVN blocking agents initially, now started on Lopressor after pacemaker placement. Continue statin, Norvasc, lisinopril Initially had DVT, status post implantation of dual-chamber pacemaker 08/24. JUWAN: Probable CKD Hyperkalemia: Resolved Monitoring for renal function Avoid nephrotoxin Continue IV diuresis Diabetes mellitus Accu-Cheks, diabetic diet Sliding-scale insulin BPH: Flomax DVT prophylaxis: SCD Disposition: PT/OT consult Monitor vital signs and labs Labs and medication were reviewed. Continue same treatment. Further recommendations as per clinical course of the patient PHYSICAL EXAMINATION: GENERAL: The patient is A&O x3, NAD HEENT: EOMI, Sclerae anicteric, Moist Mucous membranes Neck: Supple, Non tender, No JVD PULMONARY: Equal breath souds B/L, No wheezing, No crackles. CARDIOVASCULAR: S1, S2 present. No murmurs, rubs, or gallops. ABDOMEN: Soft, nontender, nondistended, normoactive bowel sounds. No guarding or rebound tenderness. MUSCULOSKELETAL: ++ edema, No cyanosis. No clubbing. Normal ROM. Intact peripheral pulses. NEUROLOGICAL: CN 2-12 grossly intact. No FND Skin: No Rash REVIEW OF SYSTEMS: CONSTITUTIONAL: No fever or chills. CARDIOVASCULAR: No chest pain, palpitations or syncope. PULMONARY: No shortness of breath, no cough, sore throat. GASTROINTESTINAL: No nausea, vomiting, diarrhea, abdominal pain. : No Dysuria, urgency, frequency. Extremities: No edema. NEUROLOGICAL: No headaches, no weakness, or numbness Dictation was produced using [employer] dictation software. please excuse any grammatical, word or spelling errors. Objective - Vital Signs Vital signs: Vital Signs Temp 97.1 F L 08/26/24 12:00 Pulse 62 08/26/24 13:00 Resp 25 H 08/26/24 13:00 BP 119/68 08/26/24 13:00 Pulse Ox 94 L 08/26/24 13:00 FiO2 Intake & Output 08/25/24 08/26/24 08/26/24 18:59 06:59 18:59 Intake Total 540 220 60 Output Total 1035 1150 175 Balance -495 -930 -115 Weight 98.5 kg Intake: IV 300 220 60 0.9 normal saline 250 220 60 Sodium Chloride 0.9% 1, 50 000 ml @ 50 mls/hr IV . Q20H [facility] Rx#:[id number] Oral 240 Output: Urine 1035 1150 175 Other: Voiding Method Indwelling Catheter Indwelling Catheter Indwelling Catheter - Labs CBC & Chem 7: 08/26/24 05:31 08/26/24 05:31 Labs: Abnormal Lab Results - Last 24 Hours (Table) 08/25/24 08/26/24 08/26/24 Range/Units 20:21 05:31 05:31 RBC 3.39 L (4.30-5.90) m/uL Hgb 10.5 L (13.0-17.5) gm/dL Hct 34.5 L (39.0-53.0) % MCV 101.7 H (80.0-100.0) fL MCHC 30.3 L (31.0-37.0) g/dL Plt Count 143 L (150-450) k/uL BUN 45 H (9-20) mg/dL Creatinine 2.00 H (0.66-1.25) mg/dL POC Glucose (mg/dL) 225 H (70-110) mg/dL Calcium 7.9 L (8.4-10.2) mg/dL 08/26/24 Range/Units 11:11 RBC (4.30-5.90) m/uL Hgb (13.0-17.5) gm/dL Hct (39.0-53.0) % MCV (80.0-100.0) fL MCHC (31.0-37.0) g/dL Plt Count (150-450) k/uL BUN (9-20) mg/dL Creatinine (0.66-1.25) mg/dL POC Glucose (mg/dL) 159 H (70-110) mg/dL Calcium (8.4-10.2) mg/dL
--- NOTE | 2024-08-26 14:40 | P.PN ---
Subjective Progress Note Date: 08/26/24 The patient is a very pleasant 88-year-old gentleman with no prior cardiac history but past medical history significant for diabetes and hypertension and dyslipidemia who was brought by his family to the emergency department for further evaluation of generalized weakness and fatigue and dizziness and lig htheadedness. As a matter fact he was seen by his primary care physician recently for a follow-up and he was found to be bradycardic and he was on metoprolol and the dose has decreased. Yesterday he was about to eat his supper when he felt weak and felt dizzy but he did not have any presyncope or syncope. No symptoms of chest pain or chest discomfort or any heart racing or fluttering. Over the last several days he developed severe bilateral lower extremities edema. The family brought the patient for further evaluation where the EKG showed sinus mechanism with first-degree AV block. He is on metoprolol and that was stopped. Currently he is not on any AV heriberto cherise agents. No history of thyroid disease. No CAD or CHF or cardiac arrhythmia and he never seen by loan representative before. Also he was found to be in acute renal failure. His potassium was elevated as well. The physical examination is remarkable for regular rhythm with a systolic murmur at the right upper sternal border and distant heart sounds and diminished breathing sounds bilaterally and severe bilateral lower extremities edema noted. August 22, 2024 The patient was seen and evaluated this morning he still requiring pacing. The pressure has improved on the IV nitroglycerin which I am trying to wean him from and at the same time increasing the dose of lisinopril. The echo showed mildly impaired LV function with EF around 45%. He is still on Lasix IV he is still have severe bilateral lower extremities edema. The physical examination is remarkable for regular rhythm with a systolic murmur at the right upper sternal border and severe bilateral lower extremities edema noted. August 23, 2024 The patient was seen and evaluated this morning. He continues to require pacing through the temporary pacemaker. Currently he is not on any AV heriberto cherise agents. He continues to have severe bilateral lower extremities edema and he is on Lasix IV. The creatinine remains stable. Will keep the patient overnight for possible permanent pacemaker to be performed tomorrow. The physical examination is remarkable for regular rhythm with a systolic murmur and severe bilateral lower extremities edema 08/25/2024 Status post dual-chamber pacemaker for complete heart block. Currently patient is in medically paced rhythm with heart rate around 80 bpm. He continues to have lower extremity edema which appears to be chronic but improved since the time of admission. 08/26/2024 BP 119/65, heart rate 62 bpm, Hb 10.5, BUN 45, creatinine 2.0, at baseline. He has chronic bilateral lower extremity edema which appears somewhat at baseline as per the patient. He does not have any JVP elevation. Chest x-ray from yesterday shows cardiomegaly with mild interstitial marking and left lower lung base but no significant congestion. Heart rates 60 to 70 bpm at rest, tolerating beta-cherise. Assessment Bradycardia with third-degree AV block status post dual-chamber pacemaker 08/24/2024 HFmrEF, EF 40% Acute renal failure CKD stage IV Generalized weakness and fatigue could be secondary to bradycardia Lymphedema Multiple comorbid conditions Pertinent cardiac testing TSH 1.1, A1c 5.9 Plan Reduce amlodipine as it might be contributing to lower extremity edema reduced to 5 mg daily Discontinue IV Lasix 40 mg. Start Bumex 1 mg p.o. twice daily Continue metoprolol succinate 25 mg daily. High risk of UTI with use of SGLT2 in this sedentary patient with Turcios catheter. Continue lisinopril 20 mg twice daily Cannot introduce Arni/MRA because of low GFR Outpatient ischemic evaluation with a stress test versus heart catheterization. Not a candidate for heart cath at this time because of CKD. Patient can be downgraded to stepdown unit from ICU. Home O2 evaluation, PT OT and social work consult. Outpatient cardiac rehab At this time patient is stable from cardiovascular standpoint. Cardiology team will sign off. Please reconsult us in case of any question. Objective - Vital Signs Vital signs: Vital Signs Temp 97.1 F L 08/26/24 12:00 Pulse 62 08/26/24 13:00 Resp 25 H 08/26/24 13:00 BP 119/68 08/26/24 13:00 Pulse Ox 94 L 08/26/24 13:00 FiO2 Intake & Output 08/25/24 08/26/24 08/26/24 18:59 06:59 18:59 Intake Total 540 220 60 Output Total 1035 1150 175 Balance -495 -930 -115 Weight 98.5 kg Intake: IV 300 220 60 0.9 normal saline 250 220 60 Sodium Chloride 0.9% 1, 50 000 ml @ 50 mls/hr IV . Q20H [facility] Rx#:[id number] Oral 240 Output: Urine 1035 1150 175 Other: Voiding Method Indwelling Catheter Indwelling Catheter Indwelling Catheter - Labs CBC & Chem 7: 08/26/24 05:31 08/26/24 05:31 Labs: Abnormal Lab Results - Last 24 Hours (Table) 08/25/24 08/26/24 08/26/24 Range/Units 20:21 05:31 05:31 RBC 3.39 L (4.30-5.90) m/uL Hgb 10.5 L (13.0-17.5) gm/dL Hct 34.5 L (39.0-53.0) % MCV 101.7 H (80.0-100.0) fL MCHC 30.3 L (31.0-37.0) g/dL Plt Count 143 L (150-450) k/uL BUN 45 H (9-20) mg/dL Creatinine 2.00 H (0.66-1.25) mg/dL POC Glucose (mg/dL) 225 H (70-110) mg/dL Calcium 7.9 L (8.4-10.2) mg/dL 08/26/24 Range/Units 11:11 RBC (4.30-5.90) m/uL Hgb (13.0-17.5) gm/dL Hct (39.0-53.0) % MCV (80.0-100.0) fL MCHC (31.0-37.0) g/dL Plt Count (150-450) k/uL BUN (9-20) mg/dL Creatinine (0.66-1.25) mg/dL POC Glucose (mg/dL) 159 H (70-110) mg/dL Calcium (8.4-10.2) mg/dL
[2024-08-26 16:41] LABS: Glucose,Whole Blood 157 mg/dL (70-110)
[2024-08-26] MEDS: BUMETANIDE 1 MG TAB PO SCH (16:47)
[2024-08-26 19:56] LABS: Glucose,Whole Blood 223 mg/dL (70-110)
[2024-08-27 03:11] LABS: Basophils % (A) 0 %; Eosinophils # (A) 0.4 k/uL (0-0.7); Eosinophils % (A) 4 %; HCT 35.1 % (39.0-53.0); HGB 10.9 gm/dL (13.0-17.5); Hypochromasia Slight; Lymphocytes # (A) 1.1 k/uL (1.0-4.8); Lymphocytes % (A) 13 %; MCH 31.5 pg (25.0-35.0); MCHC 31.1 g/dL (31.0-37.0); MCV 101.2 fL (80.0-100.0); Macrocytosis Slight; Mean Platelet Volume 9.2; Monocytes # (A) 0.9 k/uL (0-1.0); Monocytes % (A) 10 %; Neutrophils # (A) 6.3 k/uL (1.3-7.7); Neutrophils % (A) 71 %; Platelet Count 157 k/uL (150-450); RBC 3.47 m/uL (4.30-5.90); RDW 14.6 % (11.5-15.5); WBC 8.9 k/uL (3.8-10.6)
[2024-08-27 03:27] LABS: African American GFR (CKD) 29 (>60 ml/min/1.73 sqM); Anion Gap 6 mmol/L; Blood Urea Nitrogen 47 mg/dL (9-20); Carbon Dioxide 25 mmol/L (22-30); Chloride 105 mmol/L (98-107); Glucose 107 mg/dL (74-99); Non-African American GFR(CKD) 25 (>60 ml/min/1.73 sqM); Potassium 3.9 mmol/L (3.5-5.1); Sodium 136 mmol/L (137-145)
[2024-08-27] MEDS: POTASSIUM BICARBONATE/CIT AC 20 MEQ TABLET.EFF NG-TUBE SCH (03:46)
[2024-08-27 06:13] LABS: Glucose,Whole Blood 182 mg/dL (70-110)
[2024-08-27 12:51] LABS: Glucose,Whole Blood 157 mg/dL (70-110)
[2024-08-27 13:00] VITALS: BMI 30.9
--- NOTE | 2024-08-27 15:38 | P.PN ---
Subjective Interval History: 88-year-old male patient with past medical history significant for diabetes and hypertension and dyslipidemia, brought to the ER by his family for further evaluation of generalized weakness and fatigue and dizziness and lightheaded ness. Patient was seen by his primary care physician recently for a follow-up and he was found to be bradycardic and he was on metoprolol and the dose has decreased. Yesterday he was about to eat his supper when he felt weak and felt dizzy but he did not have any presyncope or syncope. No symptoms of chest pain or chest discomfort or any heart racing or fluttering. Over the last several days he developed severe bilateral lower extremities edema. The family brought the patient for further evaluation - EKG showed sinus mechanism with first-degree AV block. He is on metoprolol which is placed on hold Blood work reveals WBC of 8.6, hemoglobin of 11.8 and platelet count of 156, sodium 140, potassium 5.2, BUNs/creatinine of 35/2.13, troponin of 0.025 and lactic acid level of 2.3 Chest x-ray reveals patchy nodular infiltrate left perihilar region, possible pneumonia 24-hour interval change 08/22/2024 Patient is seen and evaluated in ICU; family is present at bedside; patient is status post temporary pacemaker placement for third-degree AV block Vital signs reveal temperature 98.1, pulse 49, respiration 23 and blood pressure 135/65; patient is still requiring pacing Blood work reveals WBC of 7.2, hemoglobin of 10 and platelet count of 160, sodium 138, potassium of 0.3, BUNs/creatinine of 37/2.20 and blood glucose of 1 1 -Beta-blockers have been discontinued; cardiology planning to increase dose of lisinopril and trying to wean patient off of IV nitroglycerin -Diuresing well with Lasix 40 mg IV every 12 hours 08/23/2024 Patient seen and evaluated in ICU in follow-up; patient was more awake and responsive this morning; denies any complaint of chest pain or shortness of breath Vital signs are reviewed; patient remains afebrile; heart rate is lingering below 50; blood pressure stable at 165/69 -Patient is status post temporary pacemaker placed on 08/21/2024 for bradycardia with third-degree AV block; cardiology on board and recommending to hold any AV heriberto cherise agents at this point; patient remains on IV diuretics; lisinopril was increased for improved blood pressure control -- Labs are still pending for this morning 08/24--patient was seen and examined today. No issues overnight. Patient underwent dual-chamber pacemaker implantation today. Remains on IV Lasix for diuresis 08/25--- patient was seen and examined today. Afebrile, heart rate 80, respiratory rate 21, blood pressure 137/71, saturating 96% on 5 L. WBC 11.1, hemoglobin 11.3 platelet 179. Sodium 137 potassium 4.3 BUN 40, creatinine 2.02 downtrending from yesterday. Patient still fluid overloaded, remains on IV Lasix for diuresis. 08/26--patient was seen and examined today. Continues have significant lower extremity edema. Afebrile, heart rate 62, respiratory rate 20, blood pressure 125/74, saturating 95% on 3 L. WBCs 8.4, hemoglobin 10.5, platelet 143. BUN 45, creatinine 2.0 decrease amlodipine dose, restarted Lopressor, per car diology. Remains on IV Lasix for diuresis. 08/27--patient was seen and examined today. Resting comfortably in bed. Pain is controlled. Was initially on IV diuresis, now switched to p.o. Bumex. P atient is afebrile, heart rate 62, respiratory rate 13, blood pressure 122/61, saturating 96% on room air. WBCs 8.9, hemoglobin 10.9, platelet 157. BUN 47, creatinine 2.22. PT/OT recommended subacute rehab. Awaiting authorization and placement. Assessment and plan: Third-degree heart block: Status post dual-chamber pacemaker placement 08/24 Bradycardia: Acute on chronic systolic CHF Cardiomyopathy with EF 40%: Hypertension Hyperlipidemia Presented with generalized weakness, fatigue, dizziness, was noted to be bradycardic at PCP office recently EKG showed sinus rhythm with first-degree AV block Echocardiogram showed mildly impaired LV function with EF around 45% Monitor daily weight and I&O's, cardiac diet Telemetry IV diuresis now switched to p.o. Bumex. Hold AVN blocking agents initially, now started on Lopressor after pacemaker placement. Continue statin, Norvasc, lisinopril Initially had DVT, status post implantation of dual-chamber pacemaker 08/24. JUWAN: Probable CKD Hyperkalemia: Resolved Monitoring for renal function Avoid nephrotoxin Continue IV diuresis Diabetes mellitus Accu-Cheks, diabetic diet Sliding-scale insulin BPH: Flomax DVT prophylaxis: SCD Disposition: ECF, awaiting authorization and placement. Monitor vital signs and labs Labs and medication were reviewed. Continue same treatment. Further recommendations as per clinical course of the patient PHYSICAL EXAMINATION: GENERAL: The patient is A&O x3, NAD HEENT: EOMI, Sclerae anicteric, Moist Mucous membranes Neck: Supple, Non tender, No JVD PULMONARY: Equal breath souds B/L, No wheezing, No crackles. CARDIOVASCULAR: S1, S2 present. No murmurs, rubs, or gallops. ABDOMEN: Soft, nontender, nondistended, normoactive bowel sounds. No guarding or rebound tenderness. MUSCULOSKELETAL: ++ edema, No cyanosis. No clubbing. Normal ROM. Intact peripheral pulses. NEUROLOGICAL: CN 2-12 grossly intact. No FND Skin: No Rash REVIEW OF SYSTEMS: CONSTITUTIONAL: No fever or chills. CARDIOVASCULAR: No chest pain, palpitations or syncope. PULMONARY: No shortness of breath, no cough, sore throat. GASTROINTESTINAL: No nausea, vomiting, diarrhea, abdominal pain. : No Dysuria, urgency, frequency. Extremities: No edema. NEUROLOGICAL: No headaches, no weakness, or numbness Dictation was produced using [employer] dictation software. please excuse any grammatical, word or spelling errors. Objective - Vital Signs Vital signs: Vital Signs Temp 98.1 F 08/27/24 12:00 Pulse 62 08/27/24 15:00 Resp 13 08/27/24 15:00 BP 122/61 08/27/24 15:00 Pulse Ox 96 08/27/24 15:00 FiO2 Intake & Output 08/26/24 08/27/24 08/27/24 18:59 06:59 18:59 Intake Total 180 60 Output Total 1175 1250 500 Balance -995 -1250 -440 Weight 95 kg 95 kg Intake: IV 180 60 0.9 normal saline 180 60 Output: Urine 1175 1250 500 Other: Voiding Method Indwelling Catheter Indwelling Catheter Indwelling Catheter # Bowel Movements 1 - Labs CBC & Chem 7: 08/27/24 02:54 08/27/24 02:50 Labs: Abnormal Lab Results - Last 24 Hours (Table) 04/02/25 04/02/25 04/03/25 Range/Units 16:38 19:55 02:50 RBC (4.30-5.90) m/uL Hgb (13.0-17.5) gm/dL Hct (39.0-53.0) % MCV (80.0-100.0) fL Sodium 136 L (137-145) mmol/L BUN 47 H (9-20) mg/dL Creatinine 2.22 H (0.66-1.25) mg/dL Glucose 107 H (74-99) mg/dL POC Glucose (mg/dL) 157 H 223 H (70-110) mg/dL Calcium 8.0 L (8.4-10.2) mg/dL 08/27/24 08/27/24 08/27/24 Range/Units 02:54 06:12 12:50 RBC 3.47 L (4.30-5.90) m/uL Hgb 10.9 L (13.0-17.5) gm/dL Hct 35.1 L (39.0-53.0) % MCV 101.2 H (80.0-100.0) fL Sodium (137-145) mmol/L BUN (9-20) mg/dL Creatinine (0.66-1.25) mg/dL Glucose (74-99) mg/dL POC Glucose (mg/dL) 182 H 157 H (70-110) mg/dL Calcium (8.4-10.2) mg/dL
[2024-08-27 16:08] LABS: Glucose,Whole Blood 182 mg/dL (70-110)
[2024-08-27 20:11] LABS: Glucose,Whole Blood 200 mg/dL (70-110)
[2024-08-28 05:44] LABS: Glucose,Whole Blood 121 mg/dL (70-110)
[2024-08-28 10:07] LABS: African American GFR (CKD) 32 (>60 ml/min/1.73 sqM); Blood Urea Nitrogen 51 mg/dL (9-20); Non-African American GFR(CKD) 28 (>60 ml/min/1.73 sqM); Potassium 4.5 mmol/L (3.5-5.1)
[2024-08-28 10:50] LABS: Glucose,Whole Blood 228 mg/dL (70-110)
[2024-08-28 14:04] VITALS: TEMP 97.5
--- NOTE | 2024-08-28 14:45 | P.PN ---
Subjective Interval History: 88-year-old male patient with past medical history significant for diabetes and hypertension and dyslipidemia, brought to the ER by his family for further evaluation of generalized weakness and fatigue and dizziness and lightheaded ness. Patient was seen by his primary care physician recently for a follow-up and he was found to be bradycardic and he was on metoprolol and the dose has decreased. Yesterday he was about to eat his supper when he felt weak and felt dizzy but he did not have any presyncope or syncope. No symptoms of chest pain or chest discomfort or any heart racing or fluttering. Over the last several days he developed severe bilateral lower extremities edema. The family brought the patient for further evaluation - EKG showed sinus mechanism with first-degree AV block. He is on metoprolol which is placed on hold Blood work reveals WBC of 8.6, hemoglobin of 11.8 and platelet count of 156, sodium 140, potassium 5.2, BUNs/creatinine of 35/2.13, troponin of 0.025 and lactic acid level of 2.3 Chest x-ray reveals patchy nodular infiltrate left perihilar region, possible pneumonia 24-hour interval change 08/22/2024 Patient is seen and evaluated in ICU; family is present at bedside; patient is status post temporary pacemaker placement for third-degree AV block Vital signs reveal temperature 98.1, pulse 49, respiration 23 and blood pressure 135/65; patient is still requiring pacing Blood work reveals WBC of 7.2, hemoglobin of 10 and platelet count of 160, sodium 138, potassium of 0.3, BUNs/creatinine of 37/2.20 and blood glucose of 1 1 -Beta-blockers have been discontinued; cardiology planning to increase dose of lisinopril and trying to wean patient off of IV nitroglycerin -Diuresing well with Lasix 40 mg IV every 12 hours 08/23/2024 Patient seen and evaluated in ICU in follow-up; patient was more awake and responsive this morning; denies any complaint of chest pain or shortness of breath Vital signs are reviewed; patient remains afebrile; heart rate is lingering below 50; blood pressure stable at 165/69 -Patient is status post temporary pacemaker placed on 08/21/2024 for bradycardia with third-degree AV block; cardiology on board and recommending to hold any AV heriberto cherise agents at this point; patient remains on IV diuretics; lisinopril was increased for improved blood pressure control -- Labs are still pending for this morning 08/24--patient was seen and examined today. No issues overnight. Patient underwent dual-chamber pacemaker implantation today. Remains on IV Lasix for diuresis 08/25--- patient was seen and examined today. Afebrile, heart rate 80, respiratory rate 21, blood pressure 137/71, saturating 96% on 5 L. WBC 11.1, hemoglobin 11.3 platelet 179. Sodium 137 potassium 4.3 BUN 40, creatinine 2.02 downtrending from yesterday. Patient still fluid overloaded, remains on IV Lasix for diuresis. 08/26--patient was seen and examined today. Continues have significant lower extremity edema. Afebrile, heart rate 62, respiratory rate 20, blood pressure 125/74, saturating 95% on 3 L. WBCs 8.4, hemoglobin 10.5, platelet 143. BUN 45, creatinine 2.0 decrease amlodipine dose, restarted Lopressor, per car diology. Remains on IV Lasix for diuresis. 08/27--patient was seen and examined today. Resting comfortably in bed. Pain is controlled. Was initially on IV diuresis, now switched to p.o. Bumex. P atient is afebrile, heart rate 62, respiratory rate 13, blood pressure 122/61, saturating 96% on room air. WBCs 8.9, hemoglobin 10.9, platelet 157. BUN 47, creatinine 2.22. PT/OT recommended subacute rehab. Awaiting authorization and placement. 08/28--patient was seen and examined today. Sitting comfortably up in chair. No issues overnight. Afebrile, heart rate 64, respiratory rate 21, blood pressure 128/53, saturating 96% on room air. BUN 51, creatinine 2.0, downtrending. Initially was on IV Bumex, now on p.o. Bumex twice daily. Awaiting placement to subacute rehab. Assessment and plan: Third-degree heart block: ---Status post dual-chamber pacemaker placement 08/24 Bradycardia: Acute on chronic systolic CHF Cardiomyopathy with EF 40%: Hypertension Hyperlipidemia Presented with generalized weakness, fatigue, dizziness, was noted to be bradycardic at PCP office recently EKG showed sinus rhythm with first-degree AV block Echocardiogram showed mildly impaired LV function with EF around 45% Monitor daily weight and I&O's, cardiac diet Telemetry IV diuresis now switched to p.o. Bumex. Hold AVN blocking agents initially, now started on Lopressor after pacemaker placement. Continue statin, Norvasc, lisinopril status post implantation of dual-chamber pacemaker 08/24. JUWAN: Probable CKD Hyperkalemia: Resolved Monitoring for renal function Avoid nephrotoxin Continue IV diuresis Diabetes mellitus Accu-Cheks, diabetic diet Sliding-scale insulin BPH: Flomax DVT prophylaxis: SCD Disposition: ECF, awaiting placement Monitor vital signs and labs Labs and medication were reviewed. Continue same treatment. Further recommendations as per clinical course of the patient PHYSICAL EXAMINATION: GENERAL: The patient is A&O x3, NAD HEENT: EOMI, Sclerae anicteric, Moist Mucous membranes Neck: Supple, Non tender, No JVD PULMONARY: Equal breath souds B/L, No wheezing, No crackles. CARDIOVASCULAR: S1, S2 present. No murmurs, rubs, or gallops. ABDOMEN: Soft, nontender, nondistended, normoactive bowel sounds. No guarding or rebound tenderness. MUSCULOSKELETAL: ++ edema, No cyanosis. No clubbing. Normal ROM. Intact peripheral pulses. NEUROLOGICAL: CN 2-12 grossly intact. No FND Skin: No Rash REVIEW OF SYSTEMS: CONSTITUTIONAL: No fever or chills. CARDIOVASCULAR: No chest pain, palpitations or syncope. PULMONARY: No shortness of breath, no cough, sore throat. GASTROINTESTINAL: No nausea, vomiting, diarrhea, abdominal pain. : No Dysuria, urgency, frequency. Extremities: No edema. NEUROLOGICAL: No headaches, no weakness, or numbness Dictation was produced using [email or web address] dictation software. please excuse any grammatical, word or spelling errors. Objective - Vital Signs Vital signs: Vital Signs Temp 97.5 F L 08/28/24 13:00 Pulse 64 08/28/24 13:00 Resp 21 08/28/24 13:00 BP 128/53 08/28/24 13:00 Pulse Ox 96 08/28/24 13:00 FiO2 Intake & Output 08/27/24 08/28/24 08/28/24 18:59 06:59 18:59 Intake Total 60 Output Total 500 2000 Balance -440 -2000 Weight 95 kg 96.6 kg Intake: IV 60 0.9 normal saline 60 Output: Urine 500 2000 Uretheral (Turcios) 1000 Other: Voiding Method Indwelling Catheter Indwelling Catheter # Voids 1 # Bowel Movements 1 - Labs CBC & Chem 7: 08/27/24 02:54 08/28/24 09:32 Labs: Abnormal Lab Results - Last 24 Hours (Table) 08/27/24 08/27/24 08/28/24 Range/Units 16:06 20:10 05:42 BUN (9-20) mg/dL Creatinine (0.66-1.25) mg/dL POC Glucose (mg/dL) 182 H 200 H 121 H (70-110) mg/dL 08/28/24 08/28/24 Range/Units 09:32 10:49 BUN 51 H (9-20) mg/dL Creatinine 2.06 H (0.66-1.25) mg/dL POC Glucose (mg/dL) 228 H (70-110) mg/dL
--- NOTE | 2024-08-28 15:16 | P.DS ---
Providers Date of admission: 08/20/24 23:48 Expected date of discharge: 08/28/24 Attending physician: Dorian Jordan MD Consults: 08/28/24 12:01 Consult Physician Routine Consulting Provider: Srini Watson Consult Reason/Comments: retention Do you want consulting provider notified?: Yes Primary care physician: Sarah Alon[facility] Hospital Course: Discharge diagnoses: Third-degree heart block: ---Status post dual-chamber pacemaker placement 08/24 Bradycardia: Acute on chronic systolic CHF Cardiomyopathy with EF 40%: Hypertension Hyperlipidemia Presented with generalized weakness, fatigue, dizziness, was noted to be bradycardic at PCP office recently EKG showed sinus rhythm with first-degree AV block Echocardiogram showed mildly impaired LV function with EF around 45% Monitor daily weight and I&O's, cardiac diet Telemetry IV diuresis now switched to p.o. Bumex. Lasix discontinued. Hold AVN blocking agents initially, now started on Lopressor after pacemaker placement. Continue statin, Norvasc, lisinopril. Norvasc dose decreased to 5 mg daily due to concern for lower extremity edema. status post implantation of dual-chamber pacemaker 08/24. JUWAN: Probable CKD Hyperkalemia: Resolved Monitoring for renal function Avoid nephrotoxin PCP to follow-up with repeat BMP in 1 week. Diabetes mellitus Discontinued glimepiride, started on low-dose glipizide. PCP to follow-up. BPH: [facility] Hospital course: 88-year-old male patient with past medical history significant for diabetes and hypertension and dyslipidemia, brought to the ER by his family for further evaluation of generalized weakness and fatigue and dizziness and lightheadedness. Patient was seen by his primary care physician recently for a follow-up and he was found to be bradycardic and he was on metoprolol and the dose has decreased. Yesterday he was about to eat his supper when he felt weak and felt dizzy but he did not have any presyncope or syncope. No symptoms of chest pain or chest discomfort or any heart racing or fluttering. Over the last several days he developed severe bilateral lower extremities edema. The family brought the patient for further evaluation - EKG showed sinus mechanism with first-degree AV block. He is on metoprolol which is placed on hold Blood work reveals WBC of 8.6, hemoglobin of 11.8 and platelet count of 156, sodium 140, potassium 5.2, BUNs/creatinine of 35/2.13, troponin of 0.025 and lactic acid level of 2.3 Chest x-ray reveals patchy nodular infiltrate left perihilar region, possible pneumonia 24-hour interval change 08/22/2024 Patient is seen and evaluated in ICU; family is present at bedside; patient is status post temporary pacemaker placement for third-degree AV block Vital signs reveal temperature 98.1, pulse 49, respiration 23 and blood pressure 135/65; patient is still requiring pacing Blood work reveals WBC of 7.2, hemoglobin of 10 and platelet count of 160, sodium 138, potassium of 0.3, BUNs/creatinine of 37/2.20 and blood glucose of 1 1 -Beta-blockers have been discontinued; cardiology planning to increase dose of lisinopril and trying to wean patient off of IV nitroglycerin -Diuresing well with Lasix 40 mg IV every 12 hours 08/23/2024 Patient seen and evaluated in ICU in follow-up; patient was more awake and responsive this morning; denies any complaint of chest pain or shortness of breath Vital signs are reviewed; patient remains afebrile; heart rate is lingering below 50; blood pressure stable at 165/69 -Patient is status post temporary pacemaker placed on 08/21/2024 for bradycardia with third-degree AV block; cardiology on board and recommending to hold any AV heriberto cherise agents at this point; patient remains on IV diuretics; lisinopril was increased for improved blood pressure control -- Labs are still pending for this morning 08/24--patient was seen and examined today. No issues overnight. Patient underwent dual-chamber pacemaker implantation today. Remains on IV Lasix for diuresis 08/25--- patient was seen and examined today. Afebrile, heart rate 80, r espiratory rate 21, blood pressure 137/71, saturating 96% on 5 L. WBC 11.1, hemoglobin 11.3 platelet 179. Sodium 137 potassium 4.3 BUN 40, creatinine 2.02 downtrending from yesterday. Patient still fluid overloaded, remains on IV Lasix for diuresis. 08/26--patient was seen and examined today. Continues have significant lower extremity edema. Afebrile, heart rate 62, respiratory rate 20, blood pressure 125/74, saturating 95% on 3 L. WBCs 8.4, hemoglobin 10.5, platelet 143. BUN 45, creatinine 2.0 decrease amlodipine dose, restarted Lopressor, per cardiology. Remains on IV Lasix for diuresis. 08/27--patient was seen and examined today. Resting comfortably in bed. Pain is controlled. Was initially on IV diuresis, now switched to p.o. Bumex. Patient is afebrile, heart rate 62, respiratory rate 13, blood pressure 122/61, saturating 96% on room air. WBCs 8.9, hemoglobin 10.9, platelet 157. BUN 47, creatinine 2.22. PT/OT recommended subacute rehab. Awaiting authorization and placement. 08/28--patient was seen and examined today. Sitting comfortably up in chair. No issues overnight. Afebrile, heart rate 64, respiratory rate 21, blood pressure 128/53, saturating 96% on room air. BUN 51, creatinine 2.0, downtrending. Initially was on IV diuresis, now on p.o. Bumex twice daily. Lasix discontinued. Norvasc dose decreased to 5 mg daily. Other home medication continued at discharge. Glimepiride discontinued, switch to glipizide at discharge. Patient's condition vital stable at discharge. Please refer to med rec and assessment plan for further details. Patient discharged to subacute rehab. Follow-up with PCP in 1 week Follow-up with cardiology as outpatient. PHYSICAL EXAMINATION: GENERAL: The patient is A&O x3, NAD HEENT: EOMI, Sclerae anicteric, Moist Mucous membranes Neck: Supple, Non tender, No JVD PULMONARY: Equal breath souds B/L, No wheezing, No crackles. CARDIOVASCULAR: S1, S2 present. No murmurs, rubs, or gallops. ABDOMEN: Soft, nontender, nondistended, normoactive bowel sounds. No guarding or rebound tenderness. MUSCULOSKELETAL: No edema, No cyanosis. No clubbing. Normal ROM. Intact peripheral pulses. NEUROLOGICAL: CN 2-12 grossly intact. No FND SKIN: No rashes. Dictation was produced using [employer] dictation software. please excuse any grammatical, word or spelling errors. Patient Condition at Discharge: Stable Plan - Discharge Summary New Discharge Prescriptions: New Bumetanide [BUMEX] 1 mg PO BID@0900,1600 tab Acetaminophen Tab [Tylenol] 650 mg PO Q6HR PRN tab PRN Reason: Mild Pain (Scale 1 To 3) amLODIPine [Norvasc] 5 mg PO DAILY tab Metoprolol Succinate (ER) [Toprol XL] 25 mg PO DAILY tab lisinopriL [Zestril] 20 mg PO BID tab Continue Glimepiride [Amaryl] 1 mg PO DAILY Potassium Chloride ER [K-Dur 10] 10 meq PO DAILY Atorvastatin Calcium [Lipitor] 40 mg PO DAILY Tamsulosin [Flomax] 0.4 mg PO DAILY Discontinued lisinopriL [Zestril] 10 mg PO DAILY amLODIPine BESYLATE/BENAZEPRIL [amLODIPine BESYLATE/BENAZEPRIL 10-20 mg] 1 cap PO DAILY Metoprolol Tartrate [Lopressor] 12.5 mg PO BID Furosemide [Lasix] 20 mg PO DAILY Discharge Medication List Atorvastatin Calcium [Lipitor] 40 mg PO DAILY 08/20/24 [History] Glimepiride [Amaryl] 1 mg PO DAILY 08/20/24 [History] Potassium Chloride ER [K-Dur 10] 10 meq PO DAILY 08/20/24 [History] Tamsulosin [Flomax] 0.4 mg PO DAILY 08/20/24 [History] Acetaminophen Tab [Tylenol] 650 mg PO Q6HR PRN tab 08/28/24 [Rx] Bumetanide [BUMEX] 1 mg PO BID@0900,1600 tab 08/28/24 [Rx] Metoprolol Succinate (ER) [Toprol XL] 25 mg PO DAILY tab 08/28/24 [Rx] amLODIPine [Norvasc] 5 mg PO DAILY tab 08/28/24 [Rx] lisinopriL [Zestril] 20 mg PO BID tab 08/28/24 [Rx] Follow up Appointment(s)/Referral(s): Delvin Hernandez MD [STAFF PHYSICIAN] - 1 Week Sarah Alonzo DO [Primary Care Provider] - 1-2 days Discharge Disposition: TRANSFER TO SNF/ECF
[2024-08-28 16:17] VITALS: BP 134/65; PULSE 66; RESP 20
[2024-08-28 16:21] LABS: Glucose,Whole Blood 196 mg/dL (70-110)
== END 2024-08-28 19:40 | DRG 242 ==
LOC: EC 18:49 → 3SCARD 23:48 → OBSVTOIN 23:48 → 2SICU 08-21 12:59
PROVIDERS: ADMIT Internal Medicine; ATTEND Internal Medicine
PROC: 5A1223Z Performance of Cardiac Pacing, Continuous (ICD-10-PCS; 2024-08-21)
PROC: 02H63JZ Insertion of Pacemaker Lead into Right Atrium, Percutaneous Approach (ICD-10-PCS; 2024-08-24)
PROC: 02HK3JZ Insertion of Pacemaker Lead into Right Ventricle, Percutaneous Approach (ICD-10-PCS; 2024-08-24)
PROC: 3E0132A Introduction of Anti-Infective Envelope into Subcutaneous Tissue, Percutaneous Approach (ICD-10-PCS; 2024-08-24)
PROC: 0JH606Z Insertion of Pacemaker, Dual Chamber into Chest Subcutaneous Tissue and Fascia, Open Approach (ICD-10-PCS; principal; 2024-08-24 16:45)
DX: I44.2 Atrioventricular block, complete (principal); I50.23 Acute on chronic systolic (congestive) heart failure; I13.0 Hypertensive heart and chronic kidney disease with heart failure and stage 1 through stage 4 chronic kidney disease, or unspecified chronic kidney disease; N17.9 Acute kidney failure, unspecified; I42.9 Cardiomyopathy, unspecified; N18.4 Chronic kidney disease, stage 4 (severe); E11.22 Type 2 diabetes mellitus with diabetic chronic kidney disease; I48.91 Unspecified atrial fibrillation; T50.1X6A Underdosing of loop [high-ceiling] diuretics, initial encounter; R00.1 Bradycardia, unspecified; E78.5 Hyperlipidemia, unspecified; E87.5 Hyperkalemia; N40.0 Benign prostatic hyperplasia without lower urinary tract symptoms; I89.0 Lymphedema, not elsewhere classified; Z79.84 Long term (current) use of oral hypoglycemic drugs; Z79.899 Other long term (current) drug therapy; Z91.148 Patient's other noncompliance with medication regimen for other reason
CPT/HCPCS: 33208; 33210; 36415; 70450; 71046; 78582; 80048; 80053; 81001; 82565; 83036; 83605; 83735; 83880; 84132; 84145; 84443; 84484; 84520; 85025; 85379; 85610; 85730; 86850; 86900; 86901; 93005; 93306; 96365; 96366; 96375; 96376; 99285